=== PATIENT | male | born 1955 | race Caucasian/White ===

== ENCOUNTER 2018-02-21 09:24 | Emergency (ER) | payer OTHER ==
[2018-02-21] MEDS ORDERED: Norco 10/325 MG Tablet PO ONE (09:48)
--- NOTE | 2018-02-21 09:57 | ERPHSYRPT ---
- History of Present Illness Time Seen by Provider: 02/21/18 09:37 Source: patient Exam Limitations: clinical condition Patient Subjective Stated Complaint: pt states a couple weeks ago he believes he pulled his right calf muscle, states the pain has gradually increased and in the last couple days and now has pain that radiates up to the right hip joint as well. pt reports he cannot sleep due to the pain. pt reports he cannot find a position of comfort. Triage Nursing Assessment: pt is aox3, pupils perrl, afebrile, resps easy and non labored, radial pulses strong and equal, pt skin is pink warm dry. no edema noted to lower extremities, no redness is noted. pt has significant varicose veins to the bilat lower extremities. pedal pulses are strong and equal. 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 DENIES COUGH, DYSPNEA OR CHEST PAIN. Method of Injury: other (DENIES INJURY) Quality: constant, throbbing Severity of Pain-Max: moderate Severity of Pain-Current: moderate Lower Extremities Pain: hip: right, leg: right Modifying Factors: Improves With: movement Associated Symptoms: unable to bear weight (PAIN UPON WEIGHT BEARING) Allergies/Adverse Reactions: oxytetracycline [From Terramycin] Allergy (Verified 02/21/18 09:45) oxytetracycline HCl [From Terramycin] Allergy (Verified 02/21/18 09:45) Home Medications: Lisinopril 25 mg PO DAILY 05/16/15 [History] Metoprolol Succinate 25 mg Xl* [Toprol-Xl 25MG Tablets] 100 mg PO DAILY 05/16 [History] Diclofenac Sodium 50 mg [Voltaren 50 mg] 50 mg PO TID 02/21/18 [History] Doxylamine Succinate [Unisom Sleep Aid] 25 mg PO QHS 02/21/18 [History] Loratadine 10 mg [Claritin 10 mg] 10 mg PO DAILY 02/21/18 [History] Hx Tetanus, Diphtheria Vaccination/Date Given: Yes Hx Influenza Vaccination/Date Given: Yes Hx Pneumococcal Vaccination/Date Given: No Immunizations Up to Date: Yes - Review of Systems Constitutional: No Symptoms Respiratory: No Symptoms Cardiac: No Symptoms Musculoskeletal: Joint Pain, Other (LEG PAIN AND SWELLING) Neurological: No Symptoms Psychological: No Symptoms Endocrine: No Symptoms - Past Medical History Pertinent Past Medical History: Yes Cardiac History: Hypertension Musculoskeletal History: Arthritis Other Medical History: gout - Past Surgical History Past Surgical History: Yes Other Surgical History: nasal surgery, tonsils, - Social History Smoking Status: Former smoker Exposure to second hand smoke: No Drug Use: none Patient Lives Alone: No - Nursing Vital Signs Nursing Vital Signs: Initial Vital Signs Temperature 97.9 F 02/21/18 09:29 Pulse Rate 96 H 02/21/18 09:29 Respiratory Rate 20 02/21/18 09:29 Blood Pressure 131/83 02/21/18 09:29 O2 Sat by Pulse Oximetry 98 02/21/18 09:29 Pain Scale Pain Intensity 10 - Physical Exam General Appearance: no apparent distress Neck Exam: normal inspection Cardiovascular/Respiratory Exam: chest non-tender Gastrointestinal/Abdominal Exam: non-tender, soft Back Exam: normal inspection, normal range of motion Hips Exam: right: normal inspection, limited range of motion (INTERNAL/EXTERNAL ROTATION WITH PAIN, NO GREATER TROCHANTER TENDERNESS, SWELLING OR DEFORMITY ) Legs Exam: right leg: pain, soft tissue tenderness, swelling (OF RIGHT CALF AND CABRERA, MARKED VARICOSE VEINS, CIRCUMFERENCE OF MID RIGHT LEG 46CM COMPARED TO LEFT MID LEG CIRCUMFERENCE OF 43CM, BILAT PEDIS PULSES 2+) Neuro/Tendon Exam: normal sensation, normal motor functions Mental Status Exam: alert, oriented x 3, cooperative SpO2: 98 Oxygen Delivery: Room Air - Radiology Exams Right Hip X-ray Interpretation: Discussed w/ radiologist, No Fracture Pelvis X-ray Interpretation: Discussed w/ radiologist, No Fracture - Radiology Ultrasound Exam Right Venous Lower Extremity Ultrasound: discussed w/radiologist (NO DVT, PHLEBITIS OF VARICOSE VEINS, THERE IS A SMALL POPLITEAL BAKERS CYST) Ordered Tests: Active Orders 24 hr Category Date Time Status HIP UNI (2V) INCL PEL IF DONE Stat Exams 02/21/18 09:49 Completed VENOUS UNILAT/LIMITED EXTREMIT [US] Stat Exams 02/21/18 10:47 Taken Medication Summary Discontinued Medications Generic Name Dose Route Start Last Admin Trade Name Freq PRN Reason Stop Dose Admin Hydrocodone Bitart/Acetaminophen 1 tab 02/21/18 09:48 02/21/18 10:25 [place] 10/325 Mg Tablet PO 02/21/18 09:49 1 tab STAT ONE Administration Hydrocodone Bitart/Acetaminophen Confirm 02/21/18 10:00 [place] 10/325 Mg Tablet Administered 02/21/18 10:01 Dose 1 tab .ROUTE .STK-MED ONE - Progress Progress: pain not gone completely Progress Note: 02/21/18 09:57 ADMINISTERED [place] 10/325 ORALLY Counseled pt/family regarding: diagnosis, need for follow-up, rad results - Departure Time of Disposition: 11:00 Departure Disposition: Home Clinical Impression: BAKERS CYST OF RIGHT KNEE, RIGHT LEG VARICOSE VEINS, RIGHT HIP PAIN Condition: Stable Critical Care Time: No Referrals: CARLOS STACY [Primary Care Provider] - Additional Instructions: AMBULATE USING CRUTCHES AT HOME WITH NONWEIGHT BEARING RIGHT LEG FOR 1 WEEK. ULTRAM 50MG EVERY 6 HOURS NEEDED FOR PAIN. CONSULT YOUR PRIMARY CARE PROVIDER FOR EVALUATION OF VARICOSE VEINS AND BAKERS CYST BEHIND RIGHT KNEE. Prescriptions: Tramadol HCl 50 mg [Ultram 50 mg] 50 mg PO Q6H PRN PRN #20 tablet PRN Reason: Pain
[2018-02-21] MEDS ORDERED: Norco 10/325 MG Tablet ONE (10:00)
--- NOTE | 2018-02-21 10:17 | XRAY ---
Indication: Right hip pain 3 weeks. No known injury. Comparison: None AP pelvis and 2 views of the right hip demonstrates minimal bilateral hip degenerative joint space narrowing and a few left pelvic phleboliths. No other bony, articular, or soft tissue abnormalities.
[2018-02-21 11:07] VITALS: BP 131/79; PULSE 85; O2SAT 95
--- NOTE | 2018-02-21 11:08 | XRAY ---
Indication: Right calf pain. History varicosities. Two-dimensional sonogram and color Doppler imaging of the major venous vessels of the right leg was performed. Comparison: None No thrombus seen in the examined deep venous vessels of the right leg including greater saphenous vein. Veins demonstrate normal compressibility. Venous waveforms are normal with and without augmentation. At the level of the calf, there is superficial venous varicosity without abnormal intraluminal echogenicities. Incidental 5.4 x 2.2 x 0.8 cm Lux's cyst. Impression: Right leg negative for DVT. Incidental calf venous varicosity and a Lux's cyst.
== END 2018-02-21 11:06 | disposition home or self-care (01) ==
LOC: ED 09:24
DX: M71.21 Synovial cyst of popliteal space [Baker], right knee (principal); I83.91 Asymptomatic varicose veins of right lower extremity; M25.551 Pain in right hip; Z79.899 Other long term (current) drug therapy
CPT/HCPCS: 73502; 93971; 99284; A9270-GY

== ENCOUNTER 2019-06-03 18:09 | Inpatient (IN) | payer BC ==
[2019-06-03] MEDS ORDERED: Hydromorphone 1 mg/ml Ampule IV ONE (18:29)
[2019-06-03] MEDS ORDERED: Zofran 4 MG/2 ML VIAL IV ONE (18:29)
[2019-06-03] MEDS ORDERED: PROTONIX 40 MG IV IV ONE ×2 (18:29→18:36)
[2019-06-03] MEDS ORDERED: Sodium Chloride 0.9% 1000 ML 1,000 ML IV STA (18:29)
[2019-06-03] MEDS ORDERED: Zofran 4 MG/2 ML VIAL ONE (18:36)
[2019-06-03] MEDS ORDERED: Hydromorphone 1 mg/ml Ampule ONE (18:36)
[2019-06-03] MEDS ORDERED: Sodium Chloride 0.9% 1000 ML 1,000 ML ONE ×2 (18:36→20:15)
[2019-06-03] MEDS ORDERED: FLAGYL 500 MG IVPB 500 MG/100 ML BAG IV STA (18:48)
[2019-06-03] MEDS ORDERED: Merrem 1 GM 1 G in Sodium Chloride 100ML MINI-BAG PLUS 100 ML IV STA (18:48)
--- NOTE | 2019-06-03 18:48 | ERPHSYRPT ---
- History of Present Illness Historian: patient Exam Limitations: no limitations Patient Subjective Stated Complaint: Pt states that pain in his right quadrants woke him up last night and pain has continued through the day Triage Nursing Assessment: Pt brought to the ER by his , rates pain 6/10, right abdomen tender to palpatation, non radiating pain, last BM yesterday and appeared normal, decreased appetite today, weak, tired, denies N&V, no difficulties with urination, tachycardic with PVC's Timing/Duration: yesterday Activities at Onset: sleep Quality: stabbing Abdominal Pain Onset Location: RLQ Pain Radiation: no radiation Severity of Pain-Max: moderate Severity of Pain-Current: moderate Modifying Factors: Improves With: nothing Associated Symptoms: denies symptoms Previous symptoms: no prior history Hx Tetanus, Diphtheria Vaccination/Date Given: Yes Hx Influenza Vaccination/Date Given: Yes Hx Pneumococcal Vaccination/Date Given: No <JETT HERNANDES - Last Filed: 06/03/19 19:22> - History of Present Illness Historian: patient Exam Limitations: no limitations Timing/Duration: yesterday Activities at Onset: sleep Quality: stabbing Abdominal Pain Onset Location: RLQ Pain Radiation: no radiation <CLARA DAWN - Last Filed: 06/04/19 18:42> - History of Present Illness Time Seen by Provider: 06/03/19 18:25 Physician History: Patient is a 64-year-old male who was awakened from sleep with pain in the right lower quadrant last night pain is continued throughout the day it has hurts to move or take a deep breath he has had some chills and sweats previous abdominal surgeries. (JETT HERNANDES) Allergies/Adverse Reactions: oxytetracycline [From Terramycin] Allergy (Verified 06/03/19 18:25) oxytetracycline HCl [From Terramycin] Allergy (Verified 06/03/19 18:25) Home Medications: Doxylamine Succinate [Unisom Sleep Aid] 25 mg PO QHS 02/21/18 [History] Loratadine 10 mg [Claritin 10 mg] 10 mg PO DAILY 02/21/18 [History] Aspirin EC 81 mg [Ecotrin 81 mg] 81 mg PO DAILY 06/03/19 [History] Atorvastatin Calcium [Lipitor] 80 mg PO DAILY 06/03/19 [History] Carvedilol 3.125 mg [Coreg 3.125 MG] 3.125 mg PO BID 06/03/19 [History] Diclofenac Sodium 50 mg [Voltaren 50 mg] 50 mg PO BID 06/03/19 [History] Ticagrelor [Brilinta] 90 mg PO BID 06/03/19 [History] allopurinoL [Allopurinol] 100 mg PO HS 06/03/19 [History] hydroCHLOROthiazide [Hydrochlorothiazide] 12.5 mg PO DAILY 06/03/19 [History] - Review of Systems Constitutional: No Fever, No Chills Eyes: No Symptoms Ears, Nose, & Throat: No Symptoms Respiratory: No Cough, No Dyspnea Cardiac: No Chest Pain, No Edema, No Syncope Abdominal/Gastrointestinal: Abdominal Pain, No Nausea, No Vomiting, No Diarrhea Genitourinary Symptoms: No Dysuria Musculoskeletal: No Back Pain, No Neck Pain Skin: No Rash Neurological: No Dizziness, No Focal Weakness, No Sensory Changes Psychological: No Symptoms Endocrine: No Symptoms All Other Systems: Reviewed and Negative <JETT HERNANDES - Last Filed: 06/03/19 19:22> - Review of Systems Abdominal/Gastrointestinal: Abdominal Pain <CLARA DAWN - Last Filed: 06/04/19 18:42> - Past Medical History Pertinent Past Medical History: Yes Cardiac History: High Cholesterol, Hypertension, Myocardial Infarction ([place]) Musculoskeletal History: Arthritis Other Medical History: gout - Past Surgical History Past Surgical History: Yes Cardiac: Cardiac Catheterization, Cardiac Stent Other Surgical History: nasal surgery - Social History Smoking Status: Former smoker Exposure to second hand smoke: No Drug Use: none Patient Lives Alone: No <JETT HERNANDES - Last Filed: 06/03/19 19:22> - Physical Exam General Appearance: no apparent distress, alert Eye Exam: PERRL/EOMI, eyes nml inspection Ears, Nose, Throat Exam: normal ENT inspection, pharynx normal, moist mucous membranes Neck Exam: normal inspection, non-tender, supple, full range of motion Respiratory Exam: normal breath sounds, lungs clear, No respiratory distress Cardiovascular Exam: regular rate/rhythm, normal heart sounds Gastrointestinal/Abdomen Exam: soft, tenderness (There is guarding and rebound in the right lower quadrant), guarding, rebound, No mass Back Exam: normal inspection, normal range of motion, No CVA tenderness, No vertebral tenderness Extremity Exam: normal inspection, normal range of motion, pelvis stable Neurologic Exam: alert, oriented x 3, cooperative, normal mood/affect, nml cerebellar function, sensation nml, No motor deficits Skin Exam: normal color, warm, dry SpO2: 95 <JETT HERNANDES - Last Filed: 06/03/19 19:22> - Physical Exam SpO2 Interpretation: normal <CLARA DAWN - Last Filed: 06/04/19 18:42> - Nursing Vital Signs Nursing Vital Signs: Initial Vital Signs Temperature 98.2 F 06/03/19 18:14 Pulse Rate 122 H 06/03/19 18:14 Blood Pressure 145/96 06/03/19 18:14 O2 Sat by Pulse Oximetry 95 06/03/19 18:14 Pain Scale Pain Intensity 2 - Course Nursing assessment & vital signs reviewed: Yes EKG Interpreted by Me: RATE ([id number]), Sinus Tach, Left [place] Deviation, Left Bundle Branch Block, Non-specific ST Changes <JETT HERNANDES - Last Filed: 06/03/19 19:22> - Course Nursing assessment & vital signs reviewed: Yes - CT Exams Abdomen/Pelvis CT Interpretation: Tele-radiologist Report, No appendicitis, Other (bhavana concerns) <CLARA DAWN - Last Filed: 06/04/19 18:42> Ordered Tests: Active Orders 24 hr Category Date Time Status Bedrest with BRP/BSC ROUTINE Activity 06/03/19 21:29 Active Up With Assistance ROUTINE Activity 06/03/19 21:29 Active Admit as Inpatient ROUTINE Care 06/03/19 21:29 Active Call Admit Doctor for Orders ON ADMISSION Care 06/03/19 21:29 Active Disc Pad Grinding Machine Feeder STAT Care 06/03/19 18:35 Completed Code Status Order ROUTINE Care 06/03/19 21:29 Active EKG-ER Only STAT Care 06/03/19 18:34 Completed Fall Protocol Q1H Care 06/03/19 21:29 Active IV Care Q6H Care 06/03/19 21:29 Active IV Insertion STAT Care 06/03/19 18:29 Completed Oxygen-ED Only Nasal Cannula 2 lpm Care 06/03/19 18:46 Completed Antoine Reeves ROUTINE Care 06/03/19 21:29 Active Telemetry Q12H Care 06/03/19 21:29 Active Weight,Daily 0600 Care 06/03/19 21:29 Active ABDOMEN AND PELVIS W CONTRAST [CT] Stat Exams 06/03/19 18:30 Completed CHEST 1 VIEW (PORTABLE) Stat Exams 06/03/19 18:30 Completed AMYLASE Stat Lab 06/03/19 18:51 Completed BLOOD CULTURE Stat Lab 06/03/19 20:56 Received CBC W DIFF AM.LAB Lab 06/04/19 04:02 Completed CBC W DIFF Stat Lab 06/03/19 18:51 Completed CMP AM.LAB Lab 06/04/19 04:02 Completed CMP Stat Lab 06/03/19 18:51 Completed LIPASE Stat Lab 06/03/19 18:51 Completed Lactic Acid Stat Lab 06/03/19 18:38 Completed Lactic Acid Stat Lab 06/03/19 20:43 Completed Manual Differential NC Stat Lab 06/03/19 18:51 Completed PROTIME WITH INR Stat Lab 06/03/19 18:51 Completed TROPONIN Q3H Lab 06/03/19 18:51 Completed TROPONIN Q3H Lab 06/03/19 21:56 Completed TROPONIN Q3H Lab 06/04/19 00:30 Completed TROPONIN Q3H Lab 06/04/19 04:02 Completed TROPONIN Q3H Lab 06/04/19 06:45 Completed UA W/RFX UR CULTURE Stat Lab 06/04/19 12:53 Completed Pulse Oximetry CONTINUOUS RT 06/03/19 21:29 Active Medication Summary Generic Name Dose Route Start Last Admin Trade Name Freq PRN Reason Stop Dose Admin Allopurinol 100 mg 06/03/19 22:00 06/03/19 23:09 Zyloprim 100 Mg PO 07/03/19 21:59 100 mg QHS MESERET Administration Aspirin 81 mg 06/04/19 10:00 06/04/19 09:23 Ecotrin 81 Mg PO 07/04/19 09:59 81 mg DAILY MESERET Administration Carvedilol 3.125 mg 06/03/19 22:00 06/04/19 09:21 Coreg 3.125 Mg PO 07/03/19 21:59 3.125 mg BID MESERET Administration Diphenhydramine HCl 25 mg 06/03/19 22:50 Benadryl 25 Mg Capsule PO 07/03/19 22:49 HS PRN PRN INSOMNIA Hydrochlorothiazide 12.5 mg 06/04/19 10:00 06/04/19 09:22 Hydrodiuril 25 Mg PO 07/04/19 09:59 12.5 mg DAILY MESERET Administration Hydromorphone HCl 0.5 mg 06/03/19 21:29 06/04/19 15:03 Dilaudid 2 Mg Injection IV 06/08/19 21:28 0.5 mg Q4H PRN PRN Administration PAIN Potassium Chloride/Dextrose/Sod Cl 1,000 mls @ 100 mls/hr 06/03/19 23:00 09:03 D5w/0.45ns W/ 20meq Kcl 1000 Ml IV 07/03/19 22:59 100 mls/hr .Q10H MESERET Administration Meropenem 1 g/ Sodium Chloride 100 mls @ 200 mls/hr 06/04/19 14:00 06/04/19 14:30 IV 07/04/19 13:59 200 mls/hr Q8HT MESERET Administration Insulin Human Regular 0 unit 06/04/19 10:00 06/04/19 12:19 Humulin R SQ 07/04/19 09:59 3 unit UD PRN Administration Loratadine 10 mg 06/04/19 10:00 06/04/19 09:21 Claritin 10 Mg PO 07/04/19 09:59 10 mg DAILY MESERET Administration Morphine Sulfate 4 mg 06/03/19 22:54 Morphine Sulfate 4 Mg Inj IV 06/08/19 22:53 Q2H PRN PRN PAIN Ondansetron HCl 4 mg 06/03/19 21:29 Zofran 4 Mg/2 Ml Vial IV 07/03/19 21:28 Q6H PRN PRN NAUSEA/VOMITING Simvastatin 40 mg 06/04/19 10:00 06/04/19 09:22 Zocor 20mg PO 07/04/19 09:59 40 mg DAILY MESERET Administration Discontinued Medications Generic Name Dose Route Start Last Admin Trade Name Freq PRN Reason Stop Dose Admin Hydromorphone HCl 1 mg 06/03/19 18:29 06/03/19 18:40 Hydromorphone 1 Mg/Ml Ampule IV 06/03/19 18:30 1 mg STAT ONE Administration Hydromorphone HCl Confirm 06/03/19 18:36 Hydromorphone 1 Mg/Ml Ampule Administered 06/03/19 18:37 Dose 1 mg .ROUTE .STK-MED ONE Sodium Chloride 1,000 mls @ 999 mls/hr 06/03/19 18:29 06/03/19 19:36 Sodium Chloride 0.9% 1000 Ml IV 06/03/19 19:29 Infused .Q1H1M STA Infusion Sodium Chloride Confirm 06/03/19 18:36 Sodium Chloride 0.9% 1000 Ml Administered 06/03/19 18:37 Dose 1,000 mls @ ud .ROUTE .STK-MED ONE Meropenem 1 g/ Sodium Chloride 100 mls @ 200 mls/hr 06/03/19 18:48 06/03/19 19:33 IV 06/03/19 19:17 Infused STAT STA Infusion Metronidazole 500 mg in 100 mls @ 200 mls/hr 06/03/19 18:48 06/03/19 20:23 Flagyl 500 Mg Ivpb IV 06/03/19 19:17 Infused STAT STA Infusion Sodium Chloride Confirm 06/03/19 18:54 Sodium Chloride 0.9% 100 Ml Ivpb Administered 06/03/19 18:55 Dose 100 mls @ ud IV .STK-MED ONE Metronidazole Confirm 06/03/19 19:31 Flagyl 500 Mg Ivpb Administered 06/03/19 19:32 Dose 500 mg in 100 mls @ ud IV .STK-MED ONE Potassium Chloride 20 meq in 100 mls @ 50 mls/hr 06/03/19 20:15 06/03/19 23: 10 Potassium Chloride 20 Meq In Water 100ml IV 06/04/19 00:14 50 mls/hr Q2H MESERET Administration Sodium Chloride 1,000 mls @ 100 mls/hr 06/03/19 20:15 06/03/19 20:19 Sodium Chloride 0.9% 1000 Ml IV 07/03/19 20:14 100 mls/hr .Q10H MESERET Administration Meropenem 1 g/ Sodium Chloride 100 mls @ 200 mls/hr 06/04/19 22:00 IV 07/04/19 21:59 Q24H MESERET Sodium Chloride Confirm 02/15/20 20:15 Sodium Chloride 0.9% 1000 Ml Administered 06/03/19 20:16 Dose 1,000 mls @ ud .ROUTE .STK-MED ONE Insulin Human Regular 0 unit 06/03/19 21:29 Novolin R SQ 07/03/19 21:28 UD PRN HYPERGLYCEMIA Meropenem Confirm 06/03/19 18:54 Merrem 1 Gm Administered 06/03/19 18:55 Dose 1 g IV .STK-MED ONE Ondansetron HCl 4 mg 06/03/19 18:29 06/03/19 18:40 Zofran 4 Mg/2 Ml Vial IV 06/03/19 18:30 4 mg STAT ONE Administration Ondansetron HCl Confirm 06/03/19 18:36 Zofran 4 Mg/2 Ml Vial Administered 06/03/19 18:37 Dose 4 mg .ROUTE .STK-MED ONE Pantoprazole Sodium 40 mg 06/03/19 18:29 06/03/19 18:40 Protonix 40 Mg Iv IV 06/03/19 18:30 40 mg STAT ONE Administration Pantoprazole Sodium Confirm 06/03/19 18:36 Protonix 40 Mg Iv Administered 06/03/19 18:37 Dose 40 mg IV .STK-MED ONE Lab/Rad Data: Laboratory Result Diagrams 06/03/19 18:51 06/03/19 18:51 Laboratory Results 06/03/19 06/03/19 06/03/19 Range/Units 20:43 18:51 18:51 WBC (4.0-10.5) K/mm3 RBC (4.1-5.6) M/mm3 Hgb (12.5-18.0) gm/dl Hct (42-50) % MCV (78-100) fl MCH (26-32) pg MCHC (32-36) g/dl RDW (11.5-14.0) % Plt Count (150-450) K/mm3 MPV (7.5-11.0) fl Segmented Neutrophils (36.-66.) % Lymphocytes (Manual) (24-44) % Monocytes (Manual) (0.0-12.0) % Eosinophils (Manual) (0.00-3.0) % Platelet Estimate (NORMAL) RBC Morphology PT 14.2 H (8.83-12.87) SECONDS INR 1.25 (0.8-3.0) Sodium (137-145) mmol/L Potassium (3.5-5.1) mmol/L Chloride (98-107) mmol/L Carbon Dioxide (22-30) mmol/L Anion Gap (5-15) MEQ/L BUN (9-20) mg/dL Creatinine (0.66-1.25) mg/dL Estimated GFR ML/MIN Glucose (74-106) mg/dL Lactic Acid 1.4 (0.4-2.0) Calcium (8.4-10.2) mg/dL Total Bilirubin (0.2-1.3) mg/dL AST (17-59) U/L ALT (0-50) U/L Alkaline Phosphatase (38-126) U/L Troponin I 0.018 (0.000-0.034) ng/mL Serum Total Protein (6.3-8.2) g/dL Albumin (3.5-5.0) g/dL Amylase (30-110) U/L Lipase (23-300) U/L 06/03/19 06/03/19 06/03/19 Range/Units 18:51 18:51 18:38 WBC 21.7 H (4.0-10.5) K/mm3 RBC 5.27 (4.1-5.6) M/mm3 Hgb 15.3 (12.5-18.0) gm/dl Hct 45.6 (42-50) % MCV 86.5 (78-100) fl MCH 29.0 (26-32) pg MCHC 33.6 (32-36) g/dl RDW 14.7 H (11.5-14.0) % Plt Count 229 (150-450) K/mm3 MPV 11.0 (7.5-11.0) fl Segmented Neutrophils 72 H (36.-66.) % Lymphocytes (Manual) 17 L (24-44) % Monocytes (Manual) 10 (0.0-12.0) % Eosinophils (Manual) 1 (0.00-3.0) % Platelet Estimate NORMAL (NORMAL) RBC Morphology NORMAL PT (8.83-12.87) SECONDS INR (0.8-3.0) Sodium 140 (137-145) mmol/L Potassium 3.3 L (3.5-5.1) mmol/L Chloride 104 (98-107) mmol/L Carbon Dioxide 24 (22-30) mmol/L Anion Gap 15.1 H (5-15) MEQ/L BUN 17 (9-20) mg/dL Creatinine 0.95 (0.66-1.25) mg/dL Estimated GFR > 60.0 ML/MIN Glucose 174 H (74-106) mg/dL Lactic Acid 2.0 (0.4-2.0) Calcium 8.9 (8.4-10.2) mg/dL Total Bilirubin 0.90 (0.2-1.3) mg/dL AST 32 (17-59) U/L ALT 41 (0-50) U/L Alkaline Phosphatase 49 (38-126) U/L Troponin I (0.000-0.034) ng/mL Serum Total Protein 8.0 (6.3-8.2) g/dL Albumin 4.3 (3.5-5.0) g/dL Amylase 70 (30-110) U/L Lipase 53 (23-300) U/L <JETT HERNANDES - Last Filed: 06/03/19 19:22> - Progress Progress: improved, re-examined Will see patient in: hospital (full admit), other (Amandeep Cruz) Counseled pt/family regarding: lab results, diagnosis, need for follow-up, rad results <CLARA DAWN - Last Filed: 06/04/19 18:42> - Progress Progress Note: 06/04/19 18:33 pt was taken at change of shift from Dr. Hernandes after discussion of pending studies and was found to have signs of bhavana and admitted to Dr. Cruz for definitive Tx (CLARA DAWN) <JETT HERNANDES - Last Filed: 06/03/19 19:22> - Departure Departure Disposition: In-patient Admission Critical Care Time: No <CLARA DAWN - Last Filed: 06/04/19 18:42> - Departure Clinical Impression: Cholecystitis Condition: Good
--- NOTE | 2019-06-03 18:48 | ERPHSYRPT ---
- History of Present Illness Time Seen by Provider: 06/03/19 18:43 Historian: patient, family Exam Limitations: no limitations Patient Subjective Stated Complaint: Pt states that pain in his right quadrants woke him up last night and pain has continued through the day Triage Nursing Assessment: Pt brought to the ER by his , rates pain 6/10, right abdomen tender to palpatation, non radiating pain, last BM yesterday and appeared normal, decreased appetite today, weak, tired, denies N&V, no difficulties with urination, tachycardic with PVC's Physician History: pt is 64 yr old male with onset RLQ pain early this am with tenderness right side abd - no trauma no vomiting but decreased apetite. denies CP or sobreath has hx stent 2 yrs ago recieved pt from dr. Hernandes at change of shift , after discussion of pending tests and introductions Timing/Duration: today Activities at Onset: sleep Quality: sharpness Abdominal Pain Onset Location: RLQ Pain Radiation: no radiation Severity of Pain-Max: moderate Severity of Pain-Current: moderate Associated Symptoms: fever/chills, loss of appetite, nausea, weakness Previous symptoms: no prior history Allergies/Adverse Reactions: oxytetracycline [From Terramycin] Allergy (Verified 06/03/19 18:25) oxytetracycline HCl [From Terramycin] Allergy (Verified 06/03/19 18:25) Home Medications: Doxylamine Succinate [Unisom Sleep Aid] 25 mg PO QHS 02/21/18 [History] Loratadine 10 mg [Claritin 10 mg] 10 mg PO DAILY 02/21/18 [History] Aspirin EC 81 mg [Ecotrin 81 mg] 81 mg PO DAILY 06/03/19 [History] Carvedilol 3.125 mg [Coreg 3.125 MG] 3.125 mg PO BID 06/03/19 [History] Diclofenac Sodium 50 mg [Voltaren 50 mg] 50 mg PO BID 06/03/19 [History] Ticagrelor [Brilinta] 90 mg PO DAILY 06/03/19 [History] allopurinoL [Allopurinol] 100 mg PO DAILY 06/03/19 [History] hydroCHLOROthiazide [Hydrochlorothiazide] 12.5 mg PO DAILY 06/03/19 [History] Hx Tetanus, Diphtheria Vaccination/Date Given: Yes Hx Influenza Vaccination/Date Given: Yes Hx Pneumococcal Vaccination/Date Given: No - Review of Systems Constitutional: Fever, Chills, Malaise, Weakness Eyes: No Symptoms Ears, Nose, & Throat: No Symptoms Respiratory: No Cough, No Dyspnea Cardiac: No Chest Pain, No Edema, No Syncope Abdominal/Gastrointestinal: Abdominal Pain, Nausea, Appetite Changes, No Vomiting, No Diarrhea Genitourinary Symptoms: No Dysuria Musculoskeletal: No Back Pain, No Neck Pain Skin: No Rash Neurological: No Dizziness, No Focal Weakness, No Sensory Changes Psychological: No Symptoms Endocrine: No Symptoms All Other Systems: Reviewed and Negative - Past Medical History Pertinent Past Medical History: Yes Cardiac History: High Cholesterol, Hypertension, Myocardial Infarction (MT) Musculoskeletal History: Arthritis Other Medical History: gout - Past Surgical History Past Surgical History: Yes Cardiac: Cardiac Catheterization, Cardiac Stent Other Surgical History: nasal surgery - Social History Smoking Status: Former smoker Exposure to second hand smoke: No Drug Use: none Patient Lives Alone: No - Nursing Vital Signs Nursing Vital Signs: Initial Vital Signs Temperature 98.2 F 06/03/19 18:14 Pulse Rate 122 H 06/03/19 18:14 Blood Pressure 145/96 06/03/19 18:14 O2 Sat by Pulse Oximetry 95 06/03/19 18:14 Pain Scale Pain Intensity 2 - Physical Exam General Appearance: no apparent distress, alert Eye Exam: PERRL/EOMI, eyes nml inspection Ears, Nose, Throat Exam: normal ENT inspection, pharynx normal, moist mucous membranes Neck Exam: normal inspection, non-tender, supple, full range of motion Respiratory Exam: normal breath sounds, lungs clear, No respiratory distress Cardiovascular Exam: regular rate/rhythm, normal heart sounds Gastrointestinal/Abdomen Exam: soft, tenderness, guarding, rebound, No mass Rectal Exam: deferred Back Exam: normal inspection, normal range of motion, No CVA tenderness, No vertebral tenderness Extremity Exam: normal inspection, normal range of motion, pelvis stable Neurologic Exam: alert, oriented x 3, cooperative, normal mood/affect, nml cerebellar function, sensation nml, No motor deficits Skin Exam: normal color, warm, dry SpO2: 95 - Course Nursing assessment & vital signs reviewed: Yes EKG Interpreted by Me: Sinus Tach, Left Borger Deviation, Left Bundle Branch Block , Non-specific ST Changes - CT Exams Abdomen/Pelvis CT Interpretation: Tele-radiologist Report, Normal Appendix, No appendicitis, Other (cholesytitis) Ordered Tests: Active Orders 24 hr Category Date Time Status 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 STAT Care 06/03/19 18:35 Active EKG-ER Only STAT Care 06/03/19 18:34 Active IV Insertion STAT Care 06/03/19 18:29 Active Oxygen-ED Only Nasal Cannula 2 lpm Care 06/03/19 18:46 Active ABDOMEN AND PELVIS W CONTRAST [CT] Stat Exams 06/03/19 18:30 Taken CHEST 1 VIEW (PORTABLE) Stat Exams 06/03/19 18:30 Taken AMYLASE Stat Lab 06/03/19 18:51 Completed BLOOD CULTURE Stat Lab 06/03/19 Ordered CBC W DIFF Stat Lab 06/03/19 18:51 Completed CMP Stat Lab 06/03/19 18:51 Completed LIPASE Stat Lab 06/03/19 18:51 Completed Lactic Acid Stat Lab 06/03/19 18:38 Completed Lactic Acid Stat Lab 06/03/19 20:43 Received Manual Differential NC Stat Lab 06/03/19 18:51 Completed PROTIME WITH INR Stat Lab 06/03/19 18:51 Completed TROPONIN Q3H Lab 06/03/19 18:51 Completed TROPONIN Q3H Lab 06/03/19 21:30 Ordered TROPONIN Q3H Lab 06/04/19 00:30 Ordered TROPONIN Q3H Lab 06/04/19 03:30 Ordered TROPONIN Q3H Lab 06/04/19 06:30 Ordered UA W/RFX UR CULTURE Stat Lab 06/03/19 18:29 Uncollected Medication Summary Generic Name Dose Route Start Last Admin Trade Name Freq PRN Reason Stop Dose Admin Potassium Chloride 20 meq in 100 mls @ 50 mls/hr 06/03/19 20:15 06/03/19 20: 32 Potassium Chloride 20 Meq In Water 100ml IV 06/04/19 00:14 50 mls/hr Q2H MESERET Administration Sodium Chloride 1,000 mls @ 100 mls/hr 06/03/19 20:15 06/03/19 20:19 Sodium Chloride 0.9% 1000 Ml IV 07/03/19 20:14 100 mls/hr .Q10H MESERET Administration Discontinued Medications Generic Name Dose Route Start Last Admin Trade Name Freq PRN Reason Stop Dose Admin Hydromorphone HCl 1 mg 06/03/19 18:29 06/03/19 18:40 Hydromorphone 1 Mg/Ml Ampule IV 06/03/19 18:30 1 mg STAT ONE Administration Hydromorphone HCl Confirm 06/03/19 18:36 Hydromorphone 1 Mg/Ml Ampule Administered 06/03/19 18:37 Dose 1 mg .ROUTE .STK-MED ONE Sodium Chloride 1,000 mls @ 999 mls/hr 06/03/19 18:29 06/03/19 19:36 Sodium Chloride 0.9% 1000 Ml IV 06/03/19 19:29 Infused .Q1H1M STA Infusion Sodium Chloride Confirm 06/03/19 18:36 Sodium Chloride 0.9% 1000 Ml Administered 06/03/19 18:37 Dose 1,000 mls @ ud .ROUTE .STK-MED ONE Meropenem 1 g/ Sodium Chloride 100 mls @ 200 mls/hr 06/03/19 18:48 06/03/19 19:33 IV 06/03/19 19:17 Infused STAT STA Infusion Metronidazole 500 mg in 100 mls @ 200 mls/hr 06/03/19 18:48 06/03/19 20:23 Flagyl 500 Mg Ivpb IV 06/03/19 19:17 Infused STAT STA Infusion Sodium Chloride Confirm 06/03/19 18:54 Sodium Chloride 0.9% 100 Ml Ivpb Administered 06/03/19 18:55 Dose 100 mls @ ud IV .STK-MED ONE Metronidazole Confirm 06/03/19 19:31 Flagyl 500 Mg Ivpb Administered 06/03/19 19:32 Dose 500 mg in 100 mls @ ud IV .STK-MED ONE Meropenem Confirm 06/03/19 18:54 Merrem 1 Gm Administered 06/03/19 18:55 Dose 1 g IV .STK-MED ONE Ondansetron HCl 4 mg 06/03/19 18:29 06/03/19 18:40 Zofran 4 Mg/2 Ml Vial IV 06/03/19 18:30 4 mg STAT ONE Administration Ondansetron HCl Confirm 06/03/19 18:36 Zofran 4 Mg/2 Ml Vial Administered 06/03/19 18:37 Dose 4 mg .ROUTE .STK-MED ONE Pantoprazole Sodium 40 mg 06/03/19 18:29 06/03/19 18:40 Protonix 40 Mg Iv IV 06/03/19 18:30 40 mg STAT ONE Administration Pantoprazole Sodium Confirm 06/03/19 18:36 Protonix 40 Mg Iv Administered 06/03/19 18:37 Dose 40 mg IV .STK-MED ONE Lab/Rad Data: Laboratory Result Diagrams 06/03/19 18:51 06/03/19 18:51 Laboratory Results 06/03/19 06/03/19 06/03/19 Range/Units 18:51 18:51 18:51 WBC (4.0-10.5) K/mm3 RBC (4.1-5.6) M/mm3 Hgb (12.5-18.0) gm/dl Hct (42-50) % MCV (78-100) fl MCH (26-32) pg MCHC (32-36) g/dl RDW (11.5-14.0) % Plt Count (150-450) K/mm3 MPV (7.5-11.0) fl PT 14.2 H (8.83-12.87) SECONDS INR 1.25 (0.8-3.0) Sodium 140 (137-145) mmol/L Potassium 3.3 L (3.5-5.1) mmol/L Chloride 104 (98-107) mmol/L Carbon Dioxide 24 (22-30) mmol/L Anion Gap 15.1 H (5-15) MEQ/L BUN 17 (9-20) mg/dL Creatinine 0.95 (0.66-1.25) mg/dL Estimated GFR > 60.0 ML/MIN Glucose 174 H (74-106) mg/dL Lactic Acid (0.4-2.0) Calcium 8.9 (8.4-10.2) mg/dL Total Bilirubin 0.90 (0.2-1.3) mg/dL AST 32 (17-59) U/L ALT 41 (0-50) U/L Alkaline Phosphatase 49 (38-126) U/L Troponin I 0.018 (0.000-0.034) ng/mL Serum Total Protein 8.0 (6.3-8.2) g/dL Albumin 4.3 (3.5-5.0) g/dL Amylase 70 (30-110) U/L Lipase 53 (23-300) U/L 06/03/19 06/03/19 Range/Units 18:51 18:38 WBC 21.7 H (4.0-10.5) K/mm3 RBC 5.27 (4.1-5.6) M/mm3 Hgb 15.3 (12.5-18.0) gm/dl Hct 45.6 (42-50) % MCV 86.5 (78-100) fl MCH 29.0 (26-32) pg MCHC 33.6 (32-36) g/dl RDW 14.7 H (11.5-14.0) % Plt Count 229 (150-450) K/mm3 MPV 11.0 (7.5-11.0) fl PT (8.83-12.87) SECONDS INR (0.8-3.0) Sodium (137-145) mmol/L Potassium (3.5-5.1) mmol/L Chloride (98-107) mmol/L Carbon Dioxide (22-30) mmol/L Anion Gap (5-15) MEQ/L BUN (9-20) mg/dL Creatinine (0.66-1.25) mg/dL Estimated GFR ML/MIN Glucose (74-106) mg/dL Lactic Acid 2.0 (0.4-2.0) Calcium (8.4-10.2) mg/dL Total Bilirubin (0.2-1.3) mg/dL AST (17-59) U/L ALT (0-50) U/L Alkaline Phosphatase (38-126) U/L Troponin I (0.000-0.034) ng/mL Serum Total Protein (6.3-8.2) g/dL Albumin (3.5-5.0) g/dL Amylase (30-110) U/L Lipase (23-300) U/L - Progress Progress: improved, re-examined Progress Note: 06/03/19 20:49 discussed with pt, family and Dr. smith including that pt is on brelinta and asa as blood thinners for CAD /stents; all agree best for pt to be admitted and Dr smith will call in orders for probable surgery; 06/03/19 20:[address].: Other (Dr. Panchito Smith) Will see patient in: hospital (full admit) Counseled pt/family regarding: lab results, diagnosis, need for follow-up, rad results - Departure Departure Disposition: In-patient Admission Clinical Impression: Cholecystitis Condition: Good Critical Care Time: No Referrals: CARLOS STACY [REFERRING *] -
[2019-06-03 18:53] LABS: Hematocrit 45.6 % (42-50); Hemoglobin 15.3 gm/dl (12.5-18.0); Mean Cell Volume 86.5 fl (78-100); Mean Corpuscular Hgb Concent. 33.6 g/dl (32-36); Platelet Count 229 K/mm3 (150-450); Red Blood Count 5.27 M/mm3 (4.1-5.6); Red Cell Distribution Width 14.7 % (11.5-14.0); White Blood Count 21.7 K/mm3 (4.0-10.5)
[2019-06-03] MEDS ORDERED: Sodium Chloride 0.9% 100 ML IVPB 100 ML IV ONE (18:54)
[2019-06-03] MEDS ORDERED: Merrem 1 GM IV ONE (18:54)
[2019-06-03 19:00] LABS: INR 1.25 (0.8-3.0); PROTIME 14.2 SECONDS (8.83-12.87)
[2019-06-03 19:05] LABS: ALBUMIN 4.3 g/dL (3.5-5.0); ALKALINE PHOSPHATASE 49 U/L (38-126); AMYLASE 70 U/L (30-110); ANION GAP 15.1 MEQ/L (5-15); BLOOD UREA NITROGEN 17 mg/dL (9-20); CHLORIDE 104 mmol/L (98-107); Calcium 8.9 mg/dL (8.4-10.2); Carbon Dioxide 24 mmol/L (22-30); Creatinine 1 0.95 mg/dL (0.66-1.25); Glucose 174 mg/dL (74-106); LIPASE 53 U/L (23-300); Potassium 3.3 mmol/L (3.5-5.1); SGOT/AST 32 U/L (17-59); SGPT/ALT 41 U/L (0-50); SODIUM 140 mmol/L (137-145)
[2019-06-03] MEDS ORDERED: FLAGYL 500 MG IVPB 500 MG/100 ML BAG IV ONE (19:31)
[2019-06-03] MEDS ORDERED: Sodium Chloride 0.9% 1000 ML 1,000 ML IV SCH (20:15)
[2019-06-03] MEDS: POTASSIUM CHLORIDE 20 mEq IN WATER 100ML 20 MEQ/100 ML BAG IV SCH ×2 (20:32→23:10)
[2019-06-03] MEDS ORDERED: NovoLIN R SQ PRN (21:29)
[2019-06-03] MEDS ORDERED: Zofran 4 MG/2 ML VIAL IV PRN (21:29)
[2019-06-03] MEDS ORDERED: BENADRYL 25 MG CAPSULE PO PRN (22:50)
[2019-06-03] MEDS: ZYLOPRIM 100 MG PO SCH (23:09)
[2019-06-03] MEDS: Coreg 3.125 MG PO SCH (23:09)
[2019-06-03] MEDS: D5W/0.45NS W/ 20mEq KCl 1000 ML 1,000 ML IV SCH (23:14)
[2019-06-03] MEDS: DILAUDID 2 MG INJECTION IV PRN (23:49)
[2019-06-04 01:03] LABS: Eosinophil 1 % (0.00-3.0); Lymphocytes 17 % (24-44); Monocyte 10 % (0.0-12.0); Neutrophils 72 % (36.-66.); Platelet Estimate NORMAL (NORMAL); Total Cells Counted 100
[2019-06-04 04:17] LABS: ALBUMIN 3.6 g/dL (3.5-5.0); ALKALINE PHOSPHATASE 46 U/L (38-126); ANION GAP 10.4 MEQ/L (5-15); BLOOD UREA NITROGEN 13 mg/dL (9-20); CHLORIDE 104 mmol/L (98-107); Calcium 8.1 mg/dL (8.4-10.2); Carbon Dioxide 26 mmol/L (22-30); Creatinine 1 0.87 mg/dL (0.66-1.25); Direct Bilirubin 0.1 mg/dL (0.0-0.4); Glucose 185 mg/dL (74-106); Potassium 3.8 mmol/L (3.5-5.1); SGOT/AST 36 U/L (17-59); SGPT/ALT 34 U/L (0-50); SODIUM 137 mmol/L (137-145); Total Protein 7.1 g/dL (6.3-8.2)
[2019-06-04 04:29] LABS: Hematocrit 42.3 % (42-50); Mean Cell Volume 88.7 fl (78-100); Mean Corpuscular Hemoglobin 29.4 pg (26-32); Mean Corpuscular Hgb Concent. 33.1 g/dl (32-36); Platelet Count 208 K/mm3 (150-450); Red Blood Count 4.77 M/mm3 (4.1-5.6); Red Cell Distribution Width 14.9 % (11.5-14.0); White Blood Count 21.2 K/mm3 (4.0-10.5)
[2019-06-04] MEDS: DILAUDID 2 MG INJECTION IV PRN ×4 (05:28→20:31)
[2019-06-04 05:55] LABS: BAND 6 % (0.0-2.0); Lymphocytes 9 % (24-44); Monocyte 7 % (0.0-12.0); Neutrophils 78 % (36.-66.); Platelet Estimate NORMAL (NORMAL); Total Cells Counted 100; Toxic Granulation 1+
--- NOTE | 2019-06-04 07:48 | XRAY ---
Indication: Right upper and right lower quadrant pain. Multiple contiguous axial images obtained through the abdomen and pelvis using 80 cc of Isovue-370 contrast only. Comparison: None Lung bases demonstrates bilateral dependent atelectasis. No infiltrate or effusion. Heart is not enlarged. Noncontrasted stomach and bowel loops appear nonobstructed. Normal appendix. Mild scattered colonic fecal debris throughout including rectum. Mild sigmoid diverticulosis. Gallbladder abnormally distended with 5 mm stone near the neck of the gallbladder. There is also borderline gallbladder wall thickening with minimal pericholecystic stranding concerning for cholecystitis. No biliary distention or abnormal free fluid/air. Spleen is enlarged measuring 14.8 cm in greatest axial dimension with a few calcified granulomas. Remaining liver, pancreas, spleen, adrenal glands, kidneys, ureters, and bladder appear unremarkable. Mild scattered aortoiliac calcifications. No AAA or pathological retroperitoneal lymphadenopathy. Osseous structures intact with mild/moderate degenerative changes throughout the thoracolumbar spine. Small fatty bilateral inguinal hernias, left greater than right. Impression: 1. Abnormally distended gallbladder with tiny gallstone, borderline wall thickening, and pericholecystic stranding. Rule out cholecystitis. 2. Incidental mild fecal stasis, sigmoid diverticulosis, splenomegaly, and bilateral fatty inguinal hernias. Comment: Preliminary interpretation was made by C. No critical discrepancy.
--- NOTE | 2019-06-04 07:51 | XRAY ---
Indication: Right abdomen pain. Comparison: None Portable apical lordotic chest demonstrates normal heart and lungs. Bony thorax intact with mild degenerative changes.
[2019-06-04] MEDS: D5W/0.45NS W/ 20mEq KCl 1000 ML 1,000 ML IV SCH ×2 (09:03→18:53)
[2019-06-04] MEDS: Coreg 3.125 MG PO SCH ×2 (09:21→21:57)
[2019-06-04] MEDS: CLARITIN 10 MG PO SCH (09:21)
[2019-06-04] MEDS: ZOCOR 20MG PO SCH (09:22)
[2019-06-04] MEDS: hydroDIURIL 25 MG PO SCH (09:22)
[2019-06-04] MEDS: ECOTRIN 81 MG PO SCH (09:23)
[2019-06-04] MEDS ORDERED: NON-FORMULARY ITEM (Atorvastatin Calcium [Lipitor] 80 MG) PO SCH (10:00)
[2019-06-04] MEDS ORDERED: NON-FORMULARY ITEM (Hydrochlorothiazide [Hydrochlorothiazide] 12.5 MG) PO SCH (10:00)
[2019-06-04] MEDS: HUMULIN R SQ PRN ×2 (12:19→22:16)
[2019-06-04 13:25] LABS: Appearance CLEAR (CLEAR); Bilirubin NEGATIVE (NEGATIVE); Blood NEGATIVE Ery/ul (0-5); Glucose NEGATIVE (NEGATIVE); Ketones NEGATIVE (NEGATIVE); Leukocyte Esterase NEGATIVE (NEGATIVE); Mucus SLIGHT /HPF (NEGATIVE); Nitrite NEGATIVE (NEGATIVE); Protein,Urine Dip NEGATIVE (Negative); Specific Gravity 1.028 (1.005-1.025); Urobilinogen 4 mg/dL (0-1)
[2019-06-04 13:28] LABS: RBC NONE SEEN /HPF (0-2); WBC NONE SEEN /HPF (0-5)
[2019-06-04] MEDS: Merrem 1 GM 1 G in Sodium Chloride 100ML MINI-BAG PLUS 100 ML IV SCH ×2 (14:30→21:56)
[2019-06-04] MEDS: ZYLOPRIM 100 MG PO SCH (21:57)
[2019-06-04] MEDS ORDERED: Merrem 1 GM 1 G in Sodium Chloride 100ML MINI-BAG PLUS 100 ML IV SCH (22:00)
[2019-06-04] MEDS: TYLENOL EXTRA STRENGTH 500 MG PO PRN (23:28)
[2019-06-05] MEDS: MORPHINE SULFATE 4 MG INJ IV PRN (03:45)
[2019-06-05] MEDS: D5W/0.45NS W/ 20mEq KCl 1000 ML 1,000 ML IV SCH (05:40)
[2019-06-05] MEDS: Merrem 1 GM 1 G in Sodium Chloride 100ML MINI-BAG PLUS 100 ML IV SCH ×3 (06:16→21:45)
[2019-06-05] MEDS ORDERED: MEFOXIN 2 GM PREMIX** 2 GM/50 ML ML IV SCH (07:00)
[2019-06-05] MEDS ORDERED: Lactated Ringers 1,000 ML IV ONE ×2 (07:07→07:21)
[2019-06-05] MEDS ORDERED: Sensorcaine 0.25% 10 ML ONE ×2 (07:07→08:57)
[2019-06-05] MEDS ORDERED: Pre-Attached Lta Kit TP ONE (08:25)
[2019-06-05] MEDS ORDERED: BREVIBLOC 100 MG/10 ML IV ONE (08:27)
[2019-06-05] MEDS ORDERED: SUBLIMAZE 250 MCG/5 ML ONE (08:27)
[2019-06-05] MEDS ORDERED: Zemuron 100 MG/10 ML ONE (08:27)
[2019-06-05] MEDS ORDERED: Quelicin Fliptop 200 MG/10 ML ONE (08:27)
[2019-06-05] MEDS ORDERED: Amidate 20 MG/10 ML IV ONE (08:27)
[2019-06-05] MEDS ORDERED: Versed 2 MG/2 ML Injection ONE (08:27)
[2019-06-05] MEDS ORDERED: PHENYLEPHRINE HCL ONE (08:47)
[2019-06-05] MEDS ORDERED: BRIDION 200MG/2ML IV ONE (09:09)
[2019-06-05] MEDS ORDERED: SUBLIMAZE 100 MCG/2 ML ONE (10:39)
[2019-06-05] MEDS ORDERED: Xopenex 1.25 MG/0.5 ML UD NEBULE IH ONE ×2 (11:01→11:16)
--- NOTE | 2019-06-05 11:38 | OP ---
SURGERY DATE/TIME: 06/05/2019 0834 PREOPERATIVE DIAGNOSIS: Acute cholecystitis. POSTOPERATIVE DIAGNOSES: Acute suppurative cholecystitis, gangrenous. PROCEDURE: Laparoscopic cholecystectomy. SURGEON: Panchito Cruz M.D. ANESTHESIA: MAC. SPECIMEN: Gallbladder. ESTIMATED BLOOD LOSS: 100. CONDITION: Patient condition stable. COMPLICATIONS: None. HISTORY: The patient is a 64 year-old male who presented to the emergency department with constant severe right upper quadrant abdominal pain. Work up revealed acute cholecystitis on imaging. He was admitted and started on IV antibiotic and Brilinta was held. He is on aspirin and Brilinta for over a year stent. Risks of infection, bleeding, bile duct leak, common bile duct injury, injury to major structure, hernia, cardiopulmonary complications were discussed with the patient as well as percutaneous cholecystostomy and the patient elected to proceed with surgery. FINDINGS: Friable gangrenous gallbladder that drained pus. Critical view was easily obtained. AUDELIA drain was left. DESCRIPTION OF PROCEDURE: The patient was brought to the operating room. General anesthesia was induced. He was placed supine with arms out. Foot board was placed. Fascia wrap was on. SCD's were applied. He was routinely prepped and draped. Suboxone had been given preoperatively. Time out was performed. Veress needle was inserted in left upper quadrant. Opening pressure was 5. Pneumoperitoneum established. A 5 mm optical trocar was placed in left upper quadrant. Abdomen was surveyed. There was no apparent injury from Veress. There was omental adhesions up to the gallbladder. An 11 mm trocar placed supraumbilically. Two additional 5 mm trocars were placed in the right upper quadrant. Lidocaine was injected in the port sites. The omentum was then swept away from the gallbladder this is done bluntly. The gallbladder was markedly distended. It was palpable on physical exam preoperatively. It was retracted in routine fashion. Cystic duct and cystic artery were dissected out using a combination of L-hook and mostly blunt dissection. Surprisingly the dissection was easy as the edema and inflammation made everything else just fall away. The critical view was obtained. The cystic duct was taken with clips, three down and one up. Cystic artery was taken two down. Cystic duct was divided. Cystic artery was taken with cautery. The gallbladder is then taken off the liver fossa. During dissection the gallbladder did tear. There was purulence expressed. There was no spillage of stones. Pus was suctioned. Gallbladder placed in specimen bag. It was brought out the 11 mm port. This did require dilation. Skin incision did require extension. The gallbladder was partially morcellized inside the bag and sent to pathology. New gloves were put on. The port was replaced. Right upper quadrant was again surveyed. It was suctioned and irrigated. There was some mild ooze from the liver fossa. The clips appeared in good position. A piece of Fibrillar was placed in the gallbladder fossa and again suction and irrigated. There was good hemostasis. A 10 mm AUDELIA drain was placed in the gallbladder fossa this was brought up the lateral port site. The umbilical fascia was closed with 0 Vicryl suture passer. The right mid port was removed under visualization. The left upper quadrant port was used for desufflation and then removed. Umbilical incision was copiously irrigated and was closed with 4-0 Vicryl. Sterile dressings were applied. All counts were correct. On bringing the patient back to flat at the end of the procedure, his left foot had slipped off of the table. It is unclear if that was just momentarily while we were leveling the bed or if it had been off for a longer portion of the procedure. He is then extubated and taken to recovery in stable condition.
[2019-06-05 12:45] LABS: A-aADO2 153; ABG HEMOGLOBIN 14.2; ABG POTASSIUM 4.3 (3.5-5.1); ABG SITE RIGHT RADIAL; ALLEN TEST OK? YES; ARTERIAL BLD GAS O2 SATURATION 97.2 % (95-100); ARTERIAL BLOOD GAS BASE EXCESS 2.7 (-2.0-2.0); ARTERIAL BLOOD GAS FIO2 40 %; ARTERIAL BLOOD GAS PCO2 44 mmHg (35-45); ARTERIAL BLOOD GAS PO2 77 mmHg (75-100); ARTERIAL BLOOD GAS VENT MODE BiPAP; ARTERIAL BLOOD GAS pH 7.41 (7.35-7.45); CARBOXYHEMOGLOBIN 2.1 % THgb (0.0-6.9); HCO3- 27.9 (22-28); HGB O2 SAT 94.3 g/dF (94-100); Methhemoglobin 0.9 % (1.4-1.5); paO2 pAO1 0.33
[2019-06-05] MEDS: DILAUDID 2 MG INJECTION IV PRN ×2 (13:54→18:13)
[2019-06-05 14:46] LABS: Hematocrit 40.8 % (42-50); Hemoglobin 13.7 gm/dl (12.5-18.0); Mean Cell Volume 89.7 fl (78-100); Mean Corpuscular Hemoglobin 30.1 pg (26-32); Mean Corpuscular Hgb Concent. 33.6 g/dl (32-36); Mean Platelet Volume 10.3 fl (7.5-11.0); Platelet Count 179 K/mm3 (150-450); Red Blood Count 4.55 M/mm3 (4.1-5.6)
--- NOTE | 2019-06-05 14:55 | XRAY ---
Indication: Short of breath following cholecystectomy. Comparison: June 03, 2019. Portable apical lordotic chest markedly underinflated accentuating cardiopulmonary structures. New mild right base infiltrate/atelectasis/effusion. Remaining heart and lungs unremarkable.
[2019-06-05 15:33] LABS: ALBUMIN 3.5 g/dL (3.5-5.0); ALKALINE PHOSPHATASE 58 U/L (38-126); BLOOD UREA NITROGEN 13 mg/dL (9-20); CHLORIDE 102 mmol/L (98-107); Carbon Dioxide 25 mmol/L (22-30); Creatinine 1 0.94 mg/dL (0.66-1.25); Glucose 128 mg/dL (74-106); Potassium 3.8 mmol/L (3.5-5.1); SGOT/AST 50 U/L (17-59); SGPT/ALT 38 U/L (0-50); SODIUM 135 mmol/L (137-145)
[2019-06-05 15:44] LABS: BAND 1 % (0.0-2.0); Eosinophil 2 % (0.00-3.0); Lymphocytes 9 % (24-44); Monocyte 8 % (0.0-12.0); Neutrophils 80 % (36.-66.); Platelet Estimate NORMAL (NORMAL); Total Cells Counted 100; Toxic Granulation 1+
[2019-06-05] MEDS: Coreg 3.125 MG PO SCH (16:17)
[2019-06-05] MEDS: hydroDIURIL 25 MG PO SCH (16:17)
[2019-06-05] MEDS: CLARITIN 10 MG PO SCH (16:17)
[2019-06-05] MEDS: ECOTRIN 81 MG PO SCH (16:17)
[2019-06-05] MEDS: ZOCOR 20MG PO SCH (16:17)
--- NOTE | 2019-06-05 17:02 | PCM.HP ---
History of Present Illness - Chief Complaint Chief Complaint: CHOLECYSTITIS History of Present Illness: is a 64 year old male who has been admitted on the general surgery service since 06/03/2019, he was admitted with acute cholecystitis and had lap cholecystectomy today with Dr Ananth Cruz, postoperatively he required bipap and has been tachycardic. he has a known hx of cad with stent by Dr Frazier, he has no history of respiratory issues but is a former smoker, hasn't smoked for 20 years. he does have some shortness of breath at this time, he has a sinus tachycardia and fever. per notes appears his gallbladder was purulent/necrotic, postop chest xray shows right base infiltrate/atelectasis/effusion. - Review of Systems Constitutional: Fever Respiratory: Cough, Short Of Breath Cardiac: No Chest Pain Abdominal/Gastrointestinal: Abdominal Pain Genitourinary Symptoms: No Dysuria Skin: No Rash All Other Systems: Reviewed and Negative Medications & Allergies Home Medications: Home Medication List Doxylamine Succinate [Unisom Sleep Aid] 25 mg PO QHS 02/21/18 [History Confirmed 06/03/19] Loratadine 10 mg [Claritin 10 mg] 10 mg PO DAILY 02/21/18 [History Confirmed 06/03/19] Aspirin EC 81 mg [Ecotrin 81 mg] 81 mg PO DAILY 06/03/19 [History Confirmed 06/03/19] Atorvastatin Calcium [Lipitor] 80 mg PO DAILY 06/03/19 [History Confirmed ] Carvedilol 3.125 mg [Coreg 3.125 MG] 3.125 mg PO BID 06/03/19 [History Confirmed 06/03/19] Diclofenac Sodium 50 mg [Voltaren 50 mg] 50 mg PO BID 06/03/19 [History Confirmed 06/03/19] Ticagrelor [Brilinta] 90 mg PO BID 06/03/19 [History Confirmed 06/03/19] allopurinoL [Allopurinol] 100 mg PO HS 06/03/19 [History Confirmed 06/03/19] hydroCHLOROthiazide [Hydrochlorothiazide] 12.5 mg PO DAILY 06/03/19 [History Confirmed 06/03/19] Allergies/Adverse Reactions: Allergies Allergy/AdvReac Type Severity Reaction Status Date / Time oxytetracycline Allergy Verified 06/03/19 18:25 [From Terramycin] oxytetracycline HCl Allergy Verified 06/03/19 18:25 [From Terramycin] - Past Medical History Past Medical History: Yes Neurological History: No Pertinent History ENT History: No Pertinent History Cardiac History: High Cholesterol, Hypertension, Myocardial Infarction ([place]) Respiratory History: No Pertinent History Endocrine Medical History: No Pertinent History Musculoskelatal History: Arthritis GI Medical History: No Pertinent History History: No Pertinent History Pyscho-Social History: No Pertinent History Male Reproductive Disorders: No Pertinent History Comment: gout - Past Surgical History Past Surgical History: Yes Cardiac History: Cardiac Catheterization, Cardiac Stent GI Surgical History: Cholecystectomy Genitourinary Surgical Hx: No Pertinent History Musculskeletal Surgical Hx: No Pertinent History Male Surgical History: No Pertinent History Other Surgical History: nasal surgery - Social History Smoking Status: Former smoker Exposure to second hand smoke: No Alcohol: None Drug Use: none - Physical Exam Vital Signs: Vital Signs - 24 hr Temp Pulse Resp BP Pulse Ox 06/05/19 16:17 100.6 F 06/05/19 16:00 136 H 28 H 116/59 06/05/19 15:23 97.8 F 138 H 26 H 112/86 96 06/05/19 15:07 97.8 F 138 H 26 H 112/86 96 06/05/19 14:55 138 H 06/05/19 14:15 117 H 28 H 106/71 95 06/05/19 13:15 136 H 28 H 124/57 96 06/05/19 12:45 120 H 26 H 128/60 96 06/05/19 12:15 110 H 25 H 136/63 95 06/05/19 12:00 100.7 F 112 H 26 H 130/58 95 06/05/19 11:45 101.1 F 77 26 H 120/57 98 06/05/19 11:17 91 H 20 91 L 06/05/19 08:12 126/72 95 06/05/19 08:00 99.3 F 95 H 18 122/58 92 L 06/05/19 06:22 95 06/05/19 04:00 98.4 F 104 H 24 126/72 96 06/05/19 00:00 24 06/04/19 23:35 102.6 F 108 H 24 131/66 94 L 06/04/19 20:00 100.4 F 105 H 26 H 128/67 93 L 06/04/19 19:23 92 L General Appearance: no apparent distress, other (sleepy but arousable, answers questions appropriately, alert and oriented) Respiratory Exam: rhonchi Cardiovascular Exam: normal heart sounds, normal peripheral pulses, tachycardia Gastrointestinal/Abdomen Exam: soft, normal bowel sounds, other (AUDELIA with serous fluid, scant drainage from ruq site on dressing, no bowel sounds heard), No tenderness, No mass Skin Exam: normal color, warm, dry, No rash Results - Labs Lab/Micro Results: Accuchecks Date 06/05/19 Date 06/05/19 Date 06/05/19 Date 06/04/19 Time 16:23 Time 12:00 Time 07:50 Time 21:30 Accucheck Value: 118 Accucheck Value: 193 Lab Results-Last 24 Hours 06/05/19 06/05/19 06/05/19 Range/Units 07:59 12:43 14:40 WBC 18.0 H (4.0-10.5) K/mm3 RBC 4.55 (4.1-5.6) M/mm3 Hgb 13.7 (12.5-18.0) gm/dl Hct 40.8 L (42-50) % MCV 89.7 (78-100) fl MCH 30.1 (26-32) pg MCHC 33.6 (32-36) g/dl RDW 15.0 H (11.5-14.0) % Plt Count 179 (150-450) K/mm3 MPV 10.3 (7.5-11.0) fl Segmented Neutrophils 80 H (36.-66.) % Band Neutrophils 1 (0.0-2.0) % Lymphocytes (Manual) 9 L (24-44) % Monocytes (Manual) 8 (0.0-12.0) % Eosinophils (Manual) 2 (0.00-3.0) % Toxic Granulation 1+ Platelet Estimate NORMAL (NORMAL) RBC Morphology NORMAL Puncture Site RIGHT RADIAL pCO2 44 (35-45) mmHg pO2 77 (75-100) mmHg Base Excess 2.7 H (-2.0-2.0) O2 Saturation 94.3 (94-100) g/dF ABG pH 7.41 (7.35-7.45) ABG HCO3 27.9 (22-28) ABG O2 Sat (Measured) 97.2 (95-100) % Ayo Test YES A-a Gradient 153 a/A Ratio 0.33 Hemoglobin 14.2 Carboxyhemoglobin 2.1 (0.0-6.9) % THgb Methemoglobin 0.9 L (1.4-1.5) % Potassium 4.3 (3.5-5.1) Temperature 37.0 C POC O2 Flow Rate 40 % Vent Mode BiPAP Inspiratory BiPAP 14 Expiratory BiPAP 6 Sodium (137-145) mmol/L Chloride (98-107) mmol/L Carbon Dioxide (22-30) mmol/L Anion Gap (5-15) MEQ/L BUN (9-20) mg/dL Creatinine (0.66-1.25) mg/dL Estimated GFR ML/MIN Glucose (74-106) mg/dL Calcium (8.4-10.2) mg/dL Total Bilirubin (0.2-1.3) mg/dL AST (17-59) U/L ALT (0-50) U/L Alkaline Phosphatase (38-126) U/L Troponin I 0.021 (0.000-0.034) ng/mL Serum Total Protein (6.3-8.2) g/dL Albumin (3.5-5.0) g/dL 06/05/19 06/05/19 Range/Units 14:40 Unknown WBC (4.0-10.5) K/mm3 RBC (4.1-5.6) M/mm3 Hgb (12.5-18.0) gm/dl Hct (42-50) % MCV (78-100) fl MCH (26-32) pg MCHC (32-36) g/dl RDW (11.5-14.0) % Plt Count (150-450) K/mm3 MPV (7.5-11.0) fl Segmented Neutrophils (36.-66.) % Band Neutrophils (0.0-2.0) % Lymphocytes (Manual) (24-44) % Monocytes (Manual) (0.0-12.0) % Eosinophils (Manual) (0.00-3.0) % Toxic Granulation Platelet Estimate (NORMAL) RBC Morphology Puncture Site pCO2 (35-45) mmHg pO2 (75-100) mmHg Base Excess (-2.0-2.0) O2 Saturation (94-100) g/dF ABG pH (7.35-7.45) ABG HCO3 (22-28) ABG O2 Sat (Measured) (95-100) % Ayo Test A-a Gradient a/A Ratio Hemoglobin Carboxyhemoglobin (0.0-6.9) % THgb Methemoglobin (1.4-1.5) % Potassium 3.8 (3.5-5.1) Temperature C POC O2 Flow Rate % Vent Mode Inspiratory BiPAP Expiratory BiPAP Sodium 135 L (137-145) mmol/L Chloride 102 (98-107) mmol/L Carbon Dioxide 25 (22-30) mmol/L Anion Gap 12.0 (5-15) MEQ/L BUN 13 (9-20) mg/dL Creatinine 0.94 (0.66-1.25) mg/dL Estimated GFR > 60.0 ML/MIN Glucose 128 H (74-106) mg/dL Calcium 8.0 L (8.4-10.2) mg/dL Total Bilirubin 1.90 H (0.2-1.3) mg/dL AST 50 (17-59) U/L ALT 38 (0-50) U/L Alkaline Phosphatase 58 (38-126) U/L Troponin I 0.015 (0.000-0.034) ng/mL Serum Total Protein 7.0 (6.3-8.2) g/dL Albumin 3.5 (3.5-5.0) g/dL Accuchecks Date 06/05/19 Date 06/05/19 Date 06/05/19 Date 06/04/19 Time 16:23 Time 12:00 Time 07:50 Time 21:30 Accucheck Value: 118 Accucheck Value: 193 - Radiology Impressions Radiology Exams & Impressions: Radiology Procedures Category Date Time Status ABDOMEN AND PELVIS W CONTRAST [CT] Stat Exams 06/03/19 18:30 Completed CHEST 1 VIEW (PORTABLE) Stat Exams 06/03/19 18:30 Completed CHEST 1 VIEW (PORTABLE) Stat Exams 06/05/19 14:34 Completed - Other Procedures and Tests Respiratory Therapy 06/05/19 11:15 Respiratory Therapy Assessment DAILY 06/05/19 12:18 BiPap/CPAP STAT Assessment/Plan (1) Pneumonia Current Visit: Yes Status: Acute Assessment & Plan: currently on meropenem, will add vanc since he now has possible early pneumonia since admission/postoperatively. Code(s): J18.9 - PNEUMONIA, UNSPECIFIED ORGANISM (2) Acute cholecystitis Current Visit: Yes Status: Acute Assessment & Plan: s/p lap cholecystectomy, continue meropenem Code(s): K81.0 - ACUTE CHOLECYSTITIS (3) Sinus tachycardia Current Visit: Yes Status: Acute Assessment & Plan: will consult [facility] cardiology, sees Dr Osuna, hx of stent placement and chronic LBBB Code(s): R00.0 - TACHYCARDIA, UNSPECIFIED (4) Left bundle branch block (LBBB) Current Visit: Yes Status: Acute Code(s): I44.7 - LEFT BUNDLE-BRANCH BLOCK, UNSPECIFIED (5) Coronary artery disease Current Visit: Yes Status: Acute Code(s): I25.10 - ATHSCL HEART DISEASE OF [place] CORONARY ARTERY W/O ANG PCTRS
[2019-06-05] MEDS ORDERED: VANCOMYCIN 1 GRAM/200 ML BAG 1 GM/200 ML PIGGYBACK IV SCH (17:30)
[2019-06-05] MEDS ORDERED: LOPRESSOR 5 MG/5 ML INJECTION IV ONE (17:50)
[2019-06-05] MEDS: TYLENOL EXTRA STRENGTH 500 MG PO PRN (18:02)
[2019-06-05] MEDS ORDERED: Coreg 3.125 MG PO SCH (18:43)
[2019-06-05] MEDS: ZYLOPRIM 100 MG PO SCH (21:05)
[2019-06-06] MEDS: D5W/0.45NS W/ 20mEq KCl 1000 ML 1,000 ML IV SCH ×2 (00:07→14:26)
[2019-06-06] MEDS: LOPRESSOR 5 MG/5 ML INJECTION IV SCH ×2 (00:09→06:22)
[2019-06-06] MEDS: DILAUDID 2 MG INJECTION IV PRN ×4 (00:30→23:01)
[2019-06-06 03:21] LABS: Hematocrit 39.1 % (42-50); Hemoglobin 12.9 gm/dl (12.5-18.0); Mean Cell Volume 90.5 fl (78-100); Mean Corpuscular Hemoglobin 29.9 pg (26-32); Mean Platelet Volume 10.5 fl (7.5-11.0); Platelet Count 165 K/mm3 (150-450); Red Blood Count 4.32 M/mm3 (4.1-5.6); Red Cell Distribution Width 15.1 % (11.5-14.0); White Blood Count 20.7 K/mm3 (4.0-10.5)
[2019-06-06 03:34] LABS: ALBUMIN 3.2 g/dL (3.5-5.0); ALKALINE PHOSPHATASE 52 U/L (38-126); BLOOD UREA NITROGEN 21 mg/dL (9-20); CHLORIDE 100 mmol/L (98-107); Calcium 7.8 mg/dL (8.4-10.2); Carbon Dioxide 28 mmol/L (22-30); Creatinine 1 1.12 mg/dL (0.66-1.25); Glucose 170 mg/dL (74-106); SGOT/AST 44 U/L (17-59); SGPT/ALT 37 U/L (0-50); SODIUM 136 mmol/L (137-145); Total Protein 6.7 g/dL (6.3-8.2)
[2019-06-06 04:47] LABS: BAND 6 % (0.0-2.0); Eosinophil 1 % (0.00-3.0); Lymphocytes 13 % (24-44); Neutrophils 80 % (36.-66.); Total Cells Counted 100
[2019-06-06 04:48] LABS: ANISOCYTOSIS 1+; Platelet Estimate NORMAL (NORMAL); Poikilocytosis 1+; Toxic Granulation 1+
[2019-06-06] MEDS: Merrem 1 GM 1 G in Sodium Chloride 100ML MINI-BAG PLUS 100 ML IV SCH ×3 (05:27→21:38)
[2019-06-06] MEDS: HUMULIN R SQ PRN ×3 (08:15→23:37)
[2019-06-06] MEDS ORDERED: LOPRESSOR 5 MG/5 ML INJECTION IV PRN (08:30)
[2019-06-06] MEDS ORDERED: hydroDIURIL 25 MG PO SCH (10:00)
[2019-06-06] MEDS: Coreg 6.25 MG PO SCH ×2 (10:13→22:56)
[2019-06-06] MEDS: ZOCOR 20MG PO SCH (10:13)
[2019-06-06] MEDS: ECOTRIN 81 MG PO SCH (10:14)
[2019-06-06] MEDS: CLARITIN 10 MG PO SCH (10:14)
[2019-06-06] MEDS: NORCO 5/325 MG PO PRN (12:34)
[2019-06-06] MEDS: VANCOMYCIN 1 GRAM/200 ML BAG 1 GM/200 ML PIGGYBACK IV SCH ×2 (15:27→22:46)
--- NOTE | 2019-06-06 17:43 | PCM.NOTE ---
Date and Time: 06/06/191736 Subjective Assessment: Cardiology was consulted yesterday, thank you, and Dr. Westley Browne increased his coreg from 3.125mg po BID to 6.25po BID. Pt's HR has been in the 90s since midnight. Pt is passing some gas but thinks he may be constipated. His abd pain is 1-2/ 10 except when he coughs, which increases the pain. Pt has been taking his home meds. Objective Exam General Appearance: no apparent distress, alert Neurologic Exam: oriented x 3, cooperative Skin Exam: normal color, warm, dry, No rash Ears, Nose, Throat Exam: moist mucous membranes Neck Exam: normal inspection Respiratory Exam: normal breath sounds, lungs clear, No crackles/rales, No rhonchi, No wheezing Cardiovascular Exam: regular rate/rhythm, normal heart sounds, No murmur Gastrointestinal/Abdomen Exam: soft, tenderness (generalized), distention, No normal bowel sounds (hypoactive but present), No mass, No guarding, No rebound Extremity Exam: normal inspection, other (SCDs in place), No pedal edema OBJECTIVE DATA Vital Signs: Vital Signs - 24 hr Temp Pulse Resp BP Pulse Ox 06/06/19 17:01 94 H 06/06/19 12:00 98.3 F 96 H 18 126/72 94 L 06/06/19 08:00 97.9 F 93 H 22 112/62 94 L 06/06/19 06:56 93 L 06/06/19 06:00 92 L 06/06/19 04:00 98.6 F 93 H 26 H 107/60 93 L 06/06/19 00:14 98.1 F 98 H 26 H 92/60 92 L 06/06/19 00:00 123 H 23 06/05/19 20:00 98.7 F 123 H 23 113/66 93 L 06/05/19 18:09 100.9 F 111 H 28 H 105/69 Oxygen-Last 24 hours Oxygen Flowrate (L/min)-RT 3 Pain Assessment - Last Documented Pain Intensity 3 Pain Scale Used 0-10 Pain Scale Intake and Output: Intake & Output 06/04/19 06/05/19 06/06/19 06/07/19 11:59 11:59 11:59 11:59 Intake Total 1262 3341 2460 240 Output Total 550 1190 1430 300 Balance 712 2151 1030 -60 Weight 110.8 kg 110.8 kg 116.4 kg Lab Results: Accuchecks Accucheck Value: 199 Accucheck Value: 164 Accucheck Value: 188 Lab Results-Last 24 Hours 06/05/19 06/05/19 06/06/19 Range/Units 17:15 21:30 03:10 WBC 20.7 H (4.0-10.5) K/mm3 RBC 4.32 (4.1-5.6) M/mm3 Hgb 12.9 (12.5-18.0) gm/dl Hct 39.1 L (42-50) % MCV 90.5 (78-100) fl MCH 29.9 (26-32) pg MCHC 33.0 (32-36) g/dl RDW 15.1 H (11.5-14.0) % Plt Count 165 (150-450) K/mm3 MPV 10.5 (7.5-11.0) fl Segmented Neutrophils 80 H (36.-66.) % Band Neutrophils 6 H (0.0-2.0) % Lymphocytes (Manual) 13 L (24-44) % Eosinophils (Manual) 1 (0.00-3.0) % Toxic Granulation 1+ Platelet Estimate NORMAL (NORMAL) RBC Morphology ABNORMAL Poikilocytosis 1+ Anisocytosis 1+ Sodium (137-145) mmol/L Potassium (3.5-5.1) mmol/L Chloride (98-107) mmol/L Carbon Dioxide (22-30) mmol/L Anion Gap (5-15) MEQ/L BUN (9-20) mg/dL Creatinine (0.66-1.25) mg/dL Estimated GFR ML/MIN Glucose (74-106) mg/dL Calcium (8.4-10.2) mg/dL Total Bilirubin (0.2-1.3) mg/dL AST (17-59) U/L ALT (0-50) U/L Alkaline Phosphatase (38-126) U/L Troponin I 0.025 0.022 (0.000-0.034) ng/mL Serum Total Protein (6.3-8.2) g/dL Albumin (3.5-5.0) g/dL 06/06/19 06/06/19 Range/Units 03:10 03:10 WBC (4.0-10.5) K/mm3 RBC (4.1-5.6) M/mm3 Hgb (12.5-18.0) gm/dl Hct (42-50) % MCV (78-100) fl MCH (26-32) pg MCHC (32-36) g/dl RDW (11.5-14.0) % Plt Count (150-450) K/mm3 MPV (7.5-11.0) fl Segmented Neutrophils (36.-66.) % Band Neutrophils (0.0-2.0) % Lymphocytes (Manual) (24-44) % Eosinophils (Manual) (0.00-3.0) % Toxic Granulation Platelet Estimate (NORMAL) RBC Morphology Poikilocytosis Anisocytosis Sodium 136 L (137-145) mmol/L Potassium 4.0 (3.5-5.1) mmol/L Chloride 100 (98-107) mmol/L Carbon Dioxide 28 (22-30) mmol/L Anion Gap 12.0 (5-15) MEQ/L BUN 21 H (9-20) mg/dL Creatinine 1.12 (0.66-1.25) mg/dL Estimated GFR > 60.0 ML/MIN Glucose 170 H (74-106) mg/dL Calcium 7.8 L (8.4-10.2) mg/dL Total Bilirubin 1.50 H (0.2-1.3) mg/dL AST 44 (17-59) U/L ALT 37 (0-50) U/L Alkaline Phosphatase 52 (38-126) U/L Troponin I < 0.012 (0.000-0.034) ng/mL Serum Total Protein 6.7 (6.3-8.2) g/dL Albumin 3.2 L (3.5-5.0) g/dL Radiology Exams: Radiology Procedures Category Date Time Status CHEST 1 VIEW (PORTABLE) Stat Exams 06/05/19 14:34 Completed Multi-Disciplinary Progress Notes: Multi-Disciplinary Progress Notes 06/06/19 12:11 Pharmacy Note by [facility] adjusted Vancomycin dose to q8h interval to provide therapeutic level. Initialized on 06/06/19 12:11 - END OF NOTE Assessment/Plan (1) Status post cholecystectomy Current Visit: Yes Status: Acute Assessment & Plan: Pt on meropenem, day #3, for intra-abdominal coverage. Code(s): Z90.49 - ACQUIRED ABSENCE OF OTHER SPECIFIED PARTS OF DIGESTIVE TRACT (2) Pneumonia Current Visit: Yes Status: Acute Qualifiers: Pneumonia type: due to unspecified organism Assessment & Plan: Day #2 vancomycin Code(s): J18.9 - PNEUMONIA, UNSPECIFIED ORGANISM (3) Sinus tachycardia Current Visit: Yes Status: Resolved Assessment & Plan: HR has been staying at or under 100 bpm on increased dose carvedilol. Code(s): R00.0 - TACHYCARDIA, UNSPECIFIED (4) Constipation Current Visit: Yes Status: Acute Qualifiers: Constipation type: slow transit constipation Qualified Code(s): K59.01 - Slow transit constipation Assessment & Plan: will add colace 100 po BID prn Code(s): K59.00 - CONSTIPATION, UNSPECIFIED (5) Coronary artery disease Current Visit: Yes Status: Chronic Code(s): I25.10 - ATHSCL HEART DISEASE OF [place] CORONARY ARTERY W/O ANG PCTRS
[2019-06-06] MEDS: ZYLOPRIM 100 MG PO SCH (22:56)
[2019-06-07] MEDS: D5W/0.45NS W/ 20mEq KCl 1000 ML 1,000 ML IV SCH ×2 (04:30→18:14)
[2019-06-07] MEDS: Merrem 1 GM 1 G in Sodium Chloride 100ML MINI-BAG PLUS 100 ML IV SCH ×3 (05:17→20:47)
[2019-06-07] MEDS: VANCOMYCIN 1 GRAM/200 ML BAG 1 GM/200 ML PIGGYBACK IV SCH ×3 (05:46→22:18)
[2019-06-07] MEDS: NORCO 5/325 MG PO PRN ×2 (08:09→13:30)
[2019-06-07] MEDS: ECOTRIN 81 MG PO SCH (08:10)
[2019-06-07] MEDS: ZOCOR 20MG PO SCH (08:10)
[2019-06-07] MEDS: Coreg 6.25 MG PO SCH ×2 (08:10→20:47)
[2019-06-07] MEDS: CLARITIN 10 MG PO SCH (08:10)
--- NOTE | 2019-06-07 08:48 | PCM.NOTE ---
Date and Time: 06/07/19 0846 Subjective Assessment: patient is breathing comfortably, tolerating po, passing flatus. still has significant cough with sputum production but is feeling better, has been up ambulating Objective Exam General Appearance: no apparent distress, obese Neurologic Exam: alert, oriented x 3 Skin Exam: normal color, warm, dry Respiratory Exam: rhonchi Cardiovascular Exam: regular rate/rhythm, normal heart sounds Gastrointestinal/Abdomen Exam: soft, No tenderness, No mass Extremity Exam: normal inspection, normal range of motion OBJECTIVE DATA Vital Signs: Vital Signs - 24 hr Temp Pulse Resp BP Pulse Ox 06/07/19 07:22 95 06/07/19 04:28 97 H 06/07/19 04:15 99.6 F 100 H 22 109/67 95 06/07/19 01:00 97 H 06/06/19 23:45 100.6 F 99 H 24 126/86 94 L 06/06/19 21:00 105 H 06/06/19 20:11 99.2 F 97 H 26 H 103/79 94 L 06/06/19 19:18 93 L 06/06/19 17:01 94 H 06/06/19 16:00 98.2 F 96 H 22 121/75 94 L 06/06/19 12:00 98.3 F 96 H 18 126/72 94 L Pain Assessment - Last Documented Pain Intensity 8 Pain Scale Used 0-10 Pain Scale Intake and Output: Intake & Output 06/04/19 06/05/19 06/06/19 06/07/19 11:59 11:59 11:59 11:59 Intake Total 1262 3341 2460 3290 Output Total 550 1190 1430 2800 Balance 712 2151 1030 490 Weight 110.8 kg 110.8 kg 116.4 kg 116.4 kg Lab Results: Accuchecks Date 06/06/19 Time 20:00 Accucheck Value: 152 Accucheck Value: 135 Accucheck Value: 199 Radiology Exams: Radiology Procedures Category Date Time Status CHEST 1 VIEW (PORTABLE) Stat Exams 06/05/19 14:34 Completed Multi-Disciplinary Progress Notes: Multi-Disciplinary Progress Notes 06/06/19 12:11 Pharmacy Note by [facility] Pharm[facility] adjusted Vancomycin dose to q8h interval to provide therapeutic level. Initialized on 06/06/19 12:11 - END OF NOTE Assessment/Plan (1) Pneumonia Current Visit: Yes Status: Acute Qualifiers: Pneumonia type: due to unspecified organism Assessment & Plan: continue vanc and meropenem for nosocomial pathogens, repeat cbc today. Code(s): J18.9 - PNEUMONIA, UNSPECIFIED ORGANISM (2) Acute cholecystitis Current Visit: Yes Status: Acute Code(s): K81.0 - ACUTE CHOLECYSTITIS (3) Sinus tachycardia Current Visit: Yes Status: Resolved Assessment & Plan: HR well controlled at this time Code(s): R00.0 - TACHYCARDIA, UNSPECIFIED (4) Left bundle branch block (LBBB) Current Visit: Yes Status: Acute Code(s): I44.7 - LEFT BUNDLE-BRANCH BLOCK, UNSPECIFIED (5) Coronary artery disease Current Visit: Yes Status: Chronic Code(s): I25.10 - ATHSCL HEART DISEASE OF [place] CORONARY ARTERY W/O ANG PCTRS
[2019-06-07] MEDS: HUMULIN R SQ PRN (08:59)
[2019-06-07] MEDS: MORPHINE SULFATE 4 MG INJ IV PRN (09:00)
[2019-06-07 09:22] LABS: Hematocrit 36.6 % (42-50); Hemoglobin 11.7 gm/dl (12.5-18.0); Mean Cell Volume 89.9 fl (78-100); Mean Corpuscular Hemoglobin 28.7 pg (26-32); Platelet Count 194 K/mm3 (150-450); Red Blood Count 4.07 M/mm3 (4.1-5.6); Red Cell Distribution Width 14.7 % (11.5-14.0); White Blood Count 15.8 K/mm3 (4.0-10.5)
[2019-06-07 10:14] LABS: ALBUMIN 3.1 g/dL (3.5-5.0); ALKALINE PHOSPHATASE 60 U/L (38-126); ANION GAP 9.4 MEQ/L (5-15); BLOOD UREA NITROGEN 16 mg/dL (9-20); CHLORIDE 98 mmol/L (98-107); Calcium 7.9 mg/dL (8.4-10.2); Carbon Dioxide 29 mmol/L (22-30); Creatinine 1 0.73 mg/dL (0.66-1.25); Glucose 153 mg/dL (74-106); Potassium 3.7 mmol/L (3.5-5.1); SGOT/AST 37 U/L (17-59); SGPT/ALT 33 U/L (0-50); SODIUM 133 mmol/L (137-145); Total Protein 6.5 g/dL (6.3-8.2)
[2019-06-07 10:21] LABS: BAND 3 % (0.0-2.0); Eosinophil 1 % (0.00-3.0); Lymphocytes 9 % (24-44); Monocyte 4 % (0.0-12.0); Neutrophils 83 % (36.-66.); Total Cells Counted 100
[2019-06-07 10:22] LABS: ANISOCYTOSIS 1+; Platelet Estimate NORMAL (NORMAL); Polychromasia RARE; Toxic Granulation 2+
--- NOTE | 2019-06-07 19:38 | PCM.NOTE ---
Date and Time: 06/07/191934 Subjective Assessment: d/w RN over phone. did not physically see patient. Progress today. 3L NC. HR normal vitals ok. Stefanie CLD. pain not well controlled on norco. OBJECTIVE DATA Vital Signs: Vital Signs - 24 hr Temp Pulse Resp BP Pulse Ox 06/07/19 16:00 98.3 F 85 22 101/64 96 06/07/19 14:50 96 06/07/19 13:00 89 06/07/19 12:22 93 L 06/07/19 12:00 98.3 F 88 23 131/73 96 06/07/19 08:42 92 H 06/07/19 08:00 98.5 F 100 H 18 108/75 95 06/07/19 07:22 95 06/07/19 04:28 97 H 06/07/19 04:15 99.6 F 100 H 22 109/67 95 06/07/19 01:00 97 H 06/06/19 23:45 100.6 F 99 H 24 126/86 94 L 06/06/19 21:00 105 H 06/06/19 20:11 99.2 F 97 H 26 H 103/79 94 L Pain Assessment - Last Documented Pain Intensity 4 Pain Scale Used 0-10 Pain Scale Intake and Output: Intake & Output 06/05/19 06/06/19 06/07/19 06/08/19 06:59 06:59 06:59 06:59 Intake Total 3701 2100 3650 1737 Output Total 1150 1270 2600 1300 Balance 2551 830 1050 437 Weight 111.8 kg 116.4 kg 116.4 kg Lab Results: Accuchecks Date 06/07/19 Date 06/07/19 Date 06/07/19 Date 06/06/19 Time 16:30 Time 11:30 Time 07:30 Time 20:00 Accucheck Value: 121 Accucheck Value: 144 Accucheck Value: 152 Lab Results-Last 24 Hours 06/07/19 06/07/19 Range/Units 09:10 09:10 WBC 15.8 H (4.0-10.5) K/mm3 RBC 4.07 L (4.1-5.6) M/mm3 Hgb 11.7 L (12.5-18.0) gm/dl Hct 36.6 L (42-50) % MCV 89.9 (78-100) fl MCH 28.7 (26-32) pg MCHC 32.0 (32-36) g/dl RDW 14.7 H (11.5-14.0) % Plt Count 194 (150-450) K/mm3 MPV 11.0 (7.5-11.0) fl Segmented Neutrophils 83 H (36.-66.) % Band Neutrophils 3 H (0.0-2.0) % Lymphocytes (Manual) 9 L (24-44) % Monocytes (Manual) 4 (0.0-12.0) % Eosinophils (Manual) 1 (0.00-3.0) % Toxic Granulation 2+ Platelet Estimate NORMAL (NORMAL) RBC Morphology ABNORMAL Polychromasia RARE Anisocytosis 1+ Sodium 133 L (137-145) mmol/L Potassium 3.7 (3.5-5.1) mmol/L Chloride 98 (98-107) mmol/L Carbon Dioxide 29 (22-30) mmol/L Anion Gap 9.4 (5-15) MEQ/L BUN 16 (9-20) mg/dL Creatinine 0.73 (0.66-1.25) mg/dL Estimated GFR > 60.0 ML/MIN Glucose 153 H (74-106) mg/dL Calcium 7.9 L (8.4-10.2) mg/dL Total Bilirubin 0.70 (0.2-1.3) mg/dL AST 37 (17-59) U/L ALT 33 (0-50) U/L Alkaline Phosphatase 60 (38-126) U/L Serum Total Protein 6.5 (6.3-8.2) g/dL Albumin 3.1 L (3.5-5.0) g/dL Multi-Disciplinary Progress Notes: Multi-Disciplinary Progress Notes 06/07/19 10:28 Case Management Note by Shadia Garcia S/W PATIENT'S - SHE IS INTERESTED IN HOME HEALTH CARE POSSIBLEY AT [place]. SHE WAS GIVEN INFO ON HOME HEALTH CARE AND THE [employer] THIS COMPANY TAKES PATIENT'S INSURANCE. SHE STATED SHE WOULD LIKE TO THINK ABOUT IT AND DECIDE IF THIS IS NEEDED CLOSER TO TIME OF [place]. Initialized on 06/07/19 10:28 - END OF NOTE Assessment/Plan (1) Acute cholecystitis Current Visit: Yes Status: Acute Assessment & Plan: chart check, d/w RN. improving s/p lap bhavana for gangrenous cholecystitis. -cont abx -change to percocet -cont diet as stefanie -OOB, IS, Pulm toilet. Code(s): K81.0 - ACUTE CHOLECYSTITIS
[2019-06-07] MEDS: PERCOCET TABLET 5/325MG PO PRN (20:09)
[2019-06-07] MEDS: ZYLOPRIM 100 MG PO SCH (20:47)
[2019-06-08] MEDS: Merrem 1 GM 1 G in Sodium Chloride 100ML MINI-BAG PLUS 100 ML IV SCH ×3 (05:22→21:46)
[2019-06-08] MEDS: PERCOCET TABLET 5/325MG PO PRN ×2 (05:30→11:03)
[2019-06-08] MEDS ORDERED: TROUGH DRUG LEVELS IJ ONE (05:30)
[2019-06-08 05:52] LABS: Hematocrit 38.1 % (42-50); Hemoglobin 12.1 gm/dl (12.5-18.0); Mean Cell Volume 90.5 fl (78-100); Mean Corpuscular Hemoglobin 28.7 pg (26-32); Mean Corpuscular Hgb Concent. 31.8 g/dl (32-36); Mean Platelet Volume 10.5 fl (7.5-11.0); Platelet Count 220 K/mm3 (150-450); Red Blood Count 4.21 M/mm3 (4.1-5.6); Red Cell Distribution Width 14.9 % (11.5-14.0); White Blood Count 14.5 K/mm3 (4.0-10.5)
[2019-06-08 05:55] LABS: ALBUMIN 3.3 g/dL (3.5-5.0); ALKALINE PHOSPHATASE 69 U/L (38-126); ANION GAP 8.1 MEQ/L (5-15); BLOOD UREA NITROGEN 15 mg/dL (9-20); CHLORIDE 98 mmol/L (98-107); Calcium 8.1 mg/dL (8.4-10.2); Carbon Dioxide 33 mmol/L (22-30); Glucose 149 mg/dL (74-106); Potassium 3.6 mmol/L (3.5-5.1); SGOT/AST 42 U/L (17-59); SGPT/ALT 37 U/L (0-50); SODIUM 135 mmol/L (137-145)
[2019-06-08] MEDS: VANCOMYCIN 1 GRAM/200 ML BAG 1 GM/200 ML PIGGYBACK IV SCH ×3 (05:56→22:23)
[2019-06-08 07:18] LABS: ANISOCYTOSIS 1+; BAND 3 % (0.0-2.0); Eosinophil 3 % (0.00-3.0); Lymphocytes 11 % (24-44); Monocyte 6 % (0.0-12.0); Neutrophils 77 % (36.-66.); Platelet Estimate NORMAL (NORMAL); Polychromasia RARE; Total Cells Counted 100; Toxic Granulation 1+
[2019-06-08] MEDS: DILAUDID 2 MG INJECTION IV PRN (07:43)
--- NOTE | 2019-06-08 08:39 | PCM.NOTE ---
Date and Time: 06/08/19 0837 Subjective Assessment: patient improving, still on liquid diet. no bm, passing flatus. c/o right foot pain and difficulty walking. still requiring oxygen Objective Exam General Appearance: no apparent distress, alert Respiratory Exam: wheezing Cardiovascular Exam: regular rate/rhythm, normal heart sounds Gastrointestinal/Abdomen Exam: soft, No normal bowel sounds, No tenderness, No mass Extremity Exam: normal inspection, normal range of motion OBJECTIVE DATA Vital Signs: Vital Signs - 24 hr Temp Pulse Resp BP Pulse Ox 06/08/19 08:05 95 06/08/19 08:00 20 06/08/19 07:20 99.1 F 93 H 20 126/79 96 06/08/19 04:20 99.4 F 92 H 24 137/91 97 06/08/19 04:00 24 06/08/19 00:00 98.7 F 88 20 104/68 96 06/07/19 20:00 93 H 26 H 06/07/19 19:53 99.0 F 92 H 26 H 118/58 96 06/07/19 19:19 96 06/07/19 16:00 98.3 F 85 22 101/64 96 06/07/19 14:50 96 06/07/19 13:00 89 06/07/19 12:22 93 L 06/07/19 12:00 98.3 F 88 23 131/73 96 06/07/19 08:42 92 H Pain Assessment - Last Documented Pain Intensity 7 Pain Scale Used 0-10 Pain Scale Intake and Output: Intake & Output 06/05/19 06/06/19 06/07/19 06/08/19 11:59 11:59 11:59 11:59 Intake Total 3341 2460 3290 4023 Output Total 1190 1430 2800 2160 Balance 2151 8645 165 3715 Weight 110.8 kg 116.4 kg 116.4 kg 112.4 kg Lab Results: Accuchecks Date 06/08/19 Date 06/07/19 Date 06/07/19 Time 07:30 Time 16:30 Time 11:30 Accucheck Value: 141 Accucheck Value: 121 Accucheck Value: 144 Lab Results-Last 24 Hours 06/07/19 06/07/19 06/08/19 Range/Units 09:10 09:10 05:30 WBC 15.8 H (4.0-10.5) K/mm3 RBC 4.07 L (4.1-5.6) M/mm3 Hgb 11.7 L (12.5-18.0) gm/dl Hct 36.6 L (42-50) % MCV 89.9 (78-100) fl MCH 28.7 (26-32) pg MCHC 32.0 (32-36) g/dl RDW 14.7 H (11.5-14.0) % Plt Count 194 (150-450) K/mm3 MPV 11.0 (7.5-11.0) fl Segmented Neutrophils 83 H (36.-66.) % Band Neutrophils 3 H (0.0-2.0) % Lymphocytes (Manual) 9 L (24-44) % Monocytes (Manual) 4 (0.0-12.0) % Eosinophils (Manual) 1 (0.00-3.0) % Toxic Granulation 2+ Platelet Estimate NORMAL (NORMAL) RBC Morphology ABNORMAL Polychromasia RARE Anisocytosis 1+ Sodium 133 L (137-145) mmol/L Potassium 3.7 (3.5-5.1) mmol/L Chloride 98 (98-107) mmol/L Carbon Dioxide 29 (22-30) mmol/L Anion Gap 9.4 (5-15) MEQ/L BUN 16 (9-20) mg/dL Creatinine 0.73 (0.66-1.25) mg/dL Estimated GFR > 60.0 ML/MIN Glucose 153 H (74-106) mg/dL Calcium 7.9 L (8.4-10.2) mg/dL Total Bilirubin 0.70 (0.2-1.3) mg/dL AST 37 (17-59) U/L ALT 33 (0-50) U/L Alkaline Phosphatase 60 (38-126) U/L Serum Total Protein 6.5 (6.3-8.2) g/dL Albumin 3.1 L (3.5-5.0) g/dL Vancomycin Trough 10.58 (10-20) ug/mL 06/08/19 06/08/19 Range/Units 05:30 05:30 WBC 14.5 H (4.0-10.5) K/mm3 RBC 4.21 (4.1-5.6) M/mm3 Hgb 12.1 L (12.5-18.0) gm/dl Hct 38.1 L (42-50) % MCV 90.5 (78-100) fl MCH 28.7 (26-32) pg MCHC 31.8 L (32-36) g/dl RDW 14.9 H (11.5-14.0) % Plt Count 220 (150-450) K/mm3 MPV 10.5 (7.5-11.0) fl Segmented Neutrophils 77 H (36.-66.) % Band Neutrophils 3 H (0.0-2.0) % Lymphocytes (Manual) 11 L (24-44) % Monocytes (Manual) 6 (0.0-12.0) % Eosinophils (Manual) 3 (0.00-3.0) % Toxic Granulation 1+ Platelet Estimate NORMAL (NORMAL) RBC Morphology ABNORMAL Polychromasia RARE Anisocytosis 1+ Sodium 135 L (137-145) mmol/L Potassium 3.6 (3.5-5.1) mmol/L Chloride 98 (98-107) mmol/L Carbon Dioxide 33 H (22-30) mmol/L Anion Gap 8.1 (5-15) MEQ/L BUN 15 (9-20) mg/dL Creatinine 0.70 (0.66-1.25) mg/dL Estimated GFR > 60.0 ML/MIN Glucose 149 H (74-106) mg/dL Calcium 8.1 L (8.4-10.2) mg/dL Total Bilirubin 0.70 (0.2-1.3) mg/dL AST 42 (17-59) U/L ALT 37 (0-50) U/L Alkaline Phosphatase 69 (38-126) U/L Serum Total Protein 7.0 (6.3-8.2) g/dL Albumin 3.3 L (3.5-5.0) g/dL Vancomycin Trough (10-20) ug/mL Radiology Exams: Radiology Procedures Category Date Time Status FOOT (2 VIEWS) Routine Exams 06/08/19 Ordered Multi-Disciplinary Progress Notes: Multi-Disciplinary Progress Notes 06/07/19 10:28 Case Management Note by Shadia Garcia S/W PATIENT'S - SHE IS INTERESTED IN HOME HEALTH CARE POSSIBLEY AT [place]. SHE WAS GIVEN INFO ON HOME HEALTH CARE AND THE [employer] THIS COMPANY TAKES PATIENT'S INSURANCE. SHE STATED SHE WOULD LIKE TO THINK ABOUT IT AND DECIDE IF THIS IS NEEDED CLOSER TO TIME OF DC. Initialized on 06/07/19 10:28 - END OF NOTE Assessment/Plan (1) Pneumonia Current Visit: Yes Status: Acute Qualifiers: Pneumonia type: due to unspecified organism Assessment & Plan: on meropenem and vanc Code(s): J18.9 - PNEUMONIA, UNSPECIFIED ORGANISM (2) Acute cholecystitis Current Visit: Yes Status: Acute Code(s): K81.0 - ACUTE CHOLECYSTITIS (3) Sinus tachycardia Current Visit: Yes Status: Resolved Code(s): R00.0 - TACHYCARDIA, UNSPECIFIED (4) Left bundle branch block (LBBB) Current Visit: Yes Status: Acute Code(s): I44.7 - LEFT BUNDLE-BRANCH BLOCK, UNSPECIFIED (5) Coronary artery disease Current Visit: Yes Status: Chronic Code(s): I25.10 - ATHSCL HEART DISEASE OF [place] CORONARY ARTERY W/O ANG PCTRS (6) Foot pain, right Current Visit: Yes Status: Acute Assessment & Plan: check uric acid and xray Code(s): M79.671 - PAIN IN RIGHT FOOT
--- NOTE | 2019-06-08 09:13 | XRAY ---
Indication: Pain. Difficulty walking. Comparison: None 2 nonweightbearing views of the right foot demonstrates small posterior heel spur. No other bony, articular, or soft tissue abnormalities.
[2019-06-08] MEDS: Coreg 6.25 MG PO SCH ×2 (09:57→21:46)
[2019-06-08] MEDS: Colace 100 MG PO PRN (09:57)
[2019-06-08] MEDS: CLARITIN 10 MG PO SCH (09:57)
[2019-06-08] MEDS: DELTASONE 20 MG PO SCH (09:58)
[2019-06-08] MEDS: ECOTRIN 81 MG PO SCH (09:58)
[2019-06-08] MEDS: ZOCOR 20MG PO SCH (09:58)
[2019-06-08] MEDS ORDERED: Dulcolax 10 MG SUPP PR ONE (14:00)
[2019-06-08] MEDS: HUMULIN R SQ PRN (16:38)
[2019-06-08] MEDS: ZYLOPRIM 100 MG PO SCH (21:46)
[2019-06-09 05:22] LABS: Hematocrit 38.2 % (42-50); Hemoglobin 12.1 gm/dl (12.5-18.0); Mean Corpuscular Hemoglobin 28.8 pg (26-32); Mean Corpuscular Hgb Concent. 31.7 g/dl (32-36); Mean Platelet Volume 10.5 fl (7.5-11.0); Platelet Count 276 K/mm3 (150-450); Red Cell Distribution Width 14.7 % (11.5-14.0); White Blood Count 15.7 K/mm3 (4.0-10.5)
[2019-06-09 05:37] LABS: ALBUMIN 3.3 g/dL (3.5-5.0); ALKALINE PHOSPHATASE 67 U/L (38-126); ANION GAP 10.7 MEQ/L (5-15); BLOOD UREA NITROGEN 17 mg/dL (9-20); CHLORIDE 99 mmol/L (98-107); Calcium 8.5 mg/dL (8.4-10.2); Carbon Dioxide 32 mmol/L (22-30); Creatinine 1 0.68 mg/dL (0.66-1.25); Glucose 126 mg/dL (74-106); Potassium 4.1 mmol/L (3.5-5.1); SGOT/AST 49 U/L (17-59); SGPT/ALT 41 U/L (0-50); SODIUM 138 mmol/L (137-145); Total Protein 7.1 g/dL (6.3-8.2)
[2019-06-09] MEDS: Merrem 1 GM 1 G in Sodium Chloride 100ML MINI-BAG PLUS 100 ML IV SCH ×3 (05:41→22:17)
[2019-06-09] MEDS: VANCOMYCIN 1 GRAM/200 ML BAG 1 GM/200 ML PIGGYBACK IV SCH ×3 (06:18→23:27)
[2019-06-09 06:41] LABS: ATYPICAL LYMPHS 1 %; BAND 2 % (0.0-2.0); Eosinophil 2 % (0.00-3.0); Lymphocytes 17 % (24-44); Monocyte 10 % (0.0-12.0); Neutrophils 68 % (36.-66.); Total Cells Counted 100
[2019-06-09 06:42] LABS: Platelet Estimate NORMAL (NORMAL); Toxic Granulation 1+
--- NOTE | 2019-06-09 09:15 | PCM.NOTE ---
Date and Time: 06/09/19911 Subjective Assessment: patient is improving, tolerating regular diet at this time. has not had a bowel movement since surgery but passing flatus, he is tolerating activity better and compliant with IS as encouraged. Objective Exam General Appearance: no apparent distress, obese Neurologic Exam: alert, oriented x 3 Respiratory Exam: rhonchi Cardiovascular Exam: regular rate/rhythm, normal heart sounds Gastrointestinal/Abdomen Exam: soft, normal bowel sounds, other (dressings clean /dry/intact), No tenderness, No mass Extremity Exam: normal inspection, normal range of motion OBJECTIVE DATA Vital Signs: Vital Signs - 24 hr Temp Pulse Resp BP Pulse Ox 06/09/19 08:00 98.9 F 83 20 146/71 94 L 06/09/19 06:54 94 L 06/09/19 04:15 98.6 F 85 20 129/76 95 06/08/19 23:47 99.2 F 91 H 20 120/65 95 06/08/19 20:20 87 L 06/08/19 20:09 98.7 F 99 H 22 140/81 93 L 06/08/19 16:00 98.3 F 84 18 130/63 95 06/08/19 12:00 98 F 88 24 110/74 95 Pain Assessment - Last Documented Pain Intensity 0 Pain Scale Used 0-10 Pain Scale Intake and Output: Intake & Output 06/06/19 06/07/19 06/08/19 06/09/19 11:59 11:59 11:59 11:59 Intake Total 2460 3290 4023 1054 Output Total 1430 2800 2160 790 Balance 6845 727 8543 264 Weight 116.4 kg 116.4 kg 112.4 kg Lab Results: Accuchecks Date 06/08/19 Date 06/08/19 Time 16:30 Time 11:30 Accucheck Value: 144 Accucheck Value: 168 Accucheck Value: 134 Lab Results-Last 24 Hours 06/05/19 06/08/19 06/09/19 Range/Units 09:34 09:45 04:30 WBC 15.7 H (4.0-10.5) K/mm3 RBC 4.20 (4.1-5.6) M/mm3 Hgb 12.1 L (12.5-18.0) gm/dl Hct 38.2 L (42-50) % MCV 91.0 (78-100) fl MCH 28.8 (26-32) pg MCHC 31.7 L (32-36) g/dl RDW 14.7 H (11.5-14.0) % Plt Count 276 (150-450) K/mm3 MPV 10.5 (7.5-11.0) fl Segmented Neutrophils 68 H (36.-66.) % Band Neutrophils 2 (0.0-2.0) % Lymphocytes (Manual) 17 L (24-44) % Monocytes (Manual) 10 (0.0-12.0) % Eosinophils (Manual) 2 (0.00-3.0) % Atypical Lymphocytes 1 % Toxic Granulation 1+ Platelet Estimate NORMAL (NORMAL) RBC Morphology NORMAL Sodium (137-145) mmol/L Potassium (3.5-5.1) mmol/L Chloride (98-107) mmol/L Carbon Dioxide (22-30) mmol/L Anion Gap (5-15) MEQ/L BUN (9-20) mg/dL Creatinine (0.66-1.25) mg/dL Estimated GFR ML/MIN Glucose (74-106) mg/dL Uric Acid 3.7 (3.5-7.2) mg/dL Calcium (8.4-10.2) mg/dL Total Bilirubin (0.2-1.3) mg/dL AST (17-59) U/L ALT (0-50) U/L Alkaline Phosphatase (38-126) U/L Serum Total Protein (6.3-8.2) g/dL Albumin (3.5-5.0) g/dL Surg PTH Diagnosis See Note H 06/09/19 Range/Units 04:30 WBC (4.0-10.5) K/mm3 RBC (4.1-5.6) M/mm3 Hgb (12.5-18.0) gm/dl Hct (42-50) % MCV (78-100) fl MCH (26-32) pg MCHC (32-36) g/dl RDW (11.5-14.0) % Plt Count (150-450) K/mm3 MPV (7.5-11.0) fl Segmented Neutrophils (36.-66.) % Band Neutrophils (0.0-2.0) % Lymphocytes (Manual) (24-44) % Monocytes (Manual) (0.0-12.0) % Eosinophils (Manual) (0.00-3.0) % Atypical Lymphocytes % Toxic Granulation Platelet Estimate (NORMAL) RBC Morphology Sodium 138 (137-145) mmol/L Potassium 4.1 (3.5-5.1) mmol/L Chloride 99 (98-107) mmol/L Carbon Dioxide 32 H (22-30) mmol/L Anion Gap 10.7 (5-15) MEQ/L BUN 17 (9-20) mg/dL Creatinine 0.68 (0.66-1.25) mg/dL Estimated GFR > 60.0 ML/MIN Glucose 126 H (74-106) mg/dL Uric Acid (3.5-7.2) mg/dL Calcium 8.5 (8.4-10.2) mg/dL Total Bilirubin 0.70 (0.2-1.3) mg/dL AST 49 (17-59) U/L ALT 41 (0-50) U/L Alkaline Phosphatase 67 (38-126) U/L Serum Total Protein 7.1 (6.3-8.2) g/dL Albumin 3.3 L (3.5-5.0) g/dL Surg PTH Diagnosis Radiology Exams: Radiology Procedures Category Date Time Status FOOT (2 VIEWS) Routine Exams 06/08/19 08:56 Completed Multi-Disciplinary Progress Notes: Multi-Disciplinary Progress Notes 06/08/19 10:38 Case Management Note by Shadia Garcia NO CHANGE IN DC PLANS AT THIS TIME- STILL UNDECIDED REGARDING HOME HEALTH CARE AT THIS TIME. WILL CONTINUE TO FOLLOW Initialized on 06/08/19 10:38 - END OF NOTE Assessment/Plan (1) Pneumonia Current Visit: Yes Status: Acute Qualifiers: Pneumonia type: due to unspecified organism Assessment & Plan: improved, on meropenem and vanc, added prednisone yesterday for bronchospasm so may contribute to mild elevation of wbc, improving clinically. will attempt to wean oxygen, home when ok with surgery and back on room air Code(s): J18.9 - PNEUMONIA, UNSPECIFIED ORGANISM (2) Acute cholecystitis Current Visit: Yes Status: Acute Code(s): K81.0 - ACUTE CHOLECYSTITIS (3) Sinus tachycardia Current Visit: Yes Status: Resolved Code(s): R00.0 - TACHYCARDIA, UNSPECIFIED (4) Left bundle branch block (LBBB) Current Visit: Yes Status: Acute Code(s): I44.7 - LEFT BUNDLE-BRANCH BLOCK, UNSPECIFIED (5) Coronary artery disease Current Visit: Yes Status: Chronic Code(s): I25.10 - ATHSCL HEART DISEASE OF [place] CORONARY ARTERY W/O ANG PCTRS (6) Foot pain, right Current Visit: Yes Status: Acute Assessment & Plan: xray negative, uric acid not elevated Code(s): M79.671 - PAIN IN RIGHT FOOT
[2019-06-09] MEDS ORDERED: Dulcolax 10 MG SUPP PR PRN (10:00)
[2019-06-09] MEDS: DELTASONE 20 MG PO SCH (10:19)
[2019-06-09] MEDS: ZOCOR 20MG PO SCH (10:19)
[2019-06-09] MEDS: CLARITIN 10 MG PO SCH (10:19)
[2019-06-09] MEDS: Miralax Powder 17GM PACKET PO SCH (10:19)
[2019-06-09] MEDS: Coreg 6.25 MG PO SCH ×2 (10:19→22:17)
[2019-06-09] MEDS: ECOTRIN 81 MG PO SCH (10:19)
[2019-06-09] MEDS: Colace 100 MG PO PRN ×2 (10:19→22:18)
[2019-06-09] MEDS: HUMULIN R SQ PRN (16:53)
[2019-06-09] MEDS: ZYLOPRIM 100 MG PO SCH (22:17)
[2019-06-10 05:58] LABS: Hematocrit 37.6 % (42-50); Hemoglobin 12.1 gm/dl (12.5-18.0); Mean Cell Volume 89.1 fl (78-100); Mean Corpuscular Hemoglobin 28.7 pg (26-32); Mean Corpuscular Hgb Concent. 32.2 g/dl (32-36); Mean Platelet Volume 10.3 fl (7.5-11.0); Platelet Count 291 K/mm3 (150-450); Red Blood Count 4.22 M/mm3 (4.1-5.6); Red Cell Distribution Width 14.8 % (11.5-14.0); White Blood Count 13.7 K/mm3 (4.0-10.5)
[2019-06-10 06:02] LABS: ALKALINE PHOSPHATASE 61 U/L (38-126); BLOOD UREA NITROGEN 21 mg/dL (9-20); CHLORIDE 104 mmol/L (98-107); Calcium 8.2 mg/dL (8.4-10.2); Carbon Dioxide 29 mmol/L (22-30); Creatinine 1 0.66 mg/dL (0.66-1.25); Glucose 111 mg/dL (74-106); Potassium 3.7 mmol/L (3.5-5.1); SGOT/AST 58 U/L (17-59); SGPT/ALT 57 U/L (0-50); SODIUM 139 mmol/L (137-145); Total Protein 6.7 g/dL (6.3-8.2)
[2019-06-10] MEDS: Merrem 1 GM 1 G in Sodium Chloride 100ML MINI-BAG PLUS 100 ML IV SCH (06:14)
[2019-06-10] MEDS: VANCOMYCIN 1 GRAM/200 ML BAG 1 GM/200 ML PIGGYBACK IV SCH (06:47)
[2019-06-10 07:24] VITALS: BP 147/76; PULSE 85
[2019-06-10 08:19] VITALS: O2SAT 92
[2019-06-10 08:50] LABS: BAND 1 % (0.0-2.0); Eosinophil 3 % (0.00-3.0); Lymphocytes 19 % (24-44); Monocyte 12 % (0.0-12.0); Neutrophils 65 % (36.-66.); Platelet Estimate NORMAL (NORMAL); Total Cells Counted 100
[2019-06-10 08:51] LABS: Toxic Granulation 1+
[2019-06-10] MEDS ORDERED: Klor Con 10 MEQ PO ONE (08:58)
[2019-06-10] MEDS: CLARITIN 10 MG PO SCH (10:35)
[2019-06-10] MEDS: ZOCOR 20MG PO SCH (10:35)
[2019-06-10] MEDS: ECOTRIN 81 MG PO SCH (10:35)
[2019-06-10] MEDS: Coreg 6.25 MG PO SCH (10:35)
[2019-06-10] MEDS: DELTASONE 20 MG PO SCH (10:35)
[2019-06-10] MEDS: Miralax Powder 17GM PACKET PO SCH (10:36)
[2019-06-10] MEDS ORDERED: Coreg 6.25 MG PO SCH (10:57)
[2019-06-10] MEDS ORDERED: Coreg 6.25 MG PO ONE (11:01)
--- NOTE | 2019-06-10 14:23 | PCM.NOTE ---
Date and Time: 06/10/19 1418 Subjective Assessment: Patient has been weaned to room air yesterday AM. He continues to use a walker to walk due to right foot pain and mild swelling. He had a stool this AM and is eating and drinking fine. THe general surgeon has written a script for antibiotics and pain medication for him that are on the chart. He would like to go home and is feeling much better. He had an unsustained run of 8 beats of V- tach yesterday during the day that Dr. Tovar was notified of. - Review of Systems Constitutional: No Symptoms Eyes: No Symptoms Ears, Nose, & Throat: No Symptoms Respiratory: No Symptoms Cardiac: No Symptoms Abdominal/Gastrointestinal: No Symptoms Genitourinary Symptoms: No Symptoms Musculoskeletal: Other (right foot pain, no pain in left foot) Skin: Other (mild erythema of top of right foot) Objective Exam General Appearance: no apparent distress, obese, other (ambulates with walker) Neurologic Exam: alert, cooperative, normal mood/affect Skin Exam: normal color, warm, other (mild erythema of dorsal aspect of right foot) Respiratory Exam: normal breath sounds, lungs clear, No crackles/rales, No rhonchi, No wheezing Cardiovascular Exam: regular rate/rhythm, normal heart sounds, No murmur, No friction rub, No gallop Gastrointestinal/Abdomen Exam: soft, normal bowel sounds, other (dressing in place) Extremity Exam: other (+1 edema of right lower extremity; no swelling of left lower extremity) OBJECTIVE DATA Vital Signs: Vital Signs - 24 hr Temp Pulse Resp BP Pulse Ox 06/10/19 12:00 20 06/10/19 08:17 92 L 06/10/19 08:00 20 06/10/19 07:23 98.1 F 85 20 147/76 95 06/10/19 04:00 98.2 F 90 18 136/65 95 06/10/19 00:00 20 06/09/19 23:29 99.0 F 89 20 134/74 98 06/09/19 20:06 92 L 06/09/19 20:00 98.6 F 102 H 19 124/71 96 06/09/19 16:00 99.3 F 91 H 18 127/63 93 L Pain Assessment - Last Documented Pain Intensity 0 Pain Scale Used 0-10 Pain Scale Intake and Output: Intake & Output 06/08/19 06/09/19 06/10/19 06/11/19 06:59 06:59 06:59 06:59 Intake Total 4027 1055 8795 240 Output Total 2560 790 660 500 Balance 0662 960 3962 -260 Weight 112.4 kg 112.6 kg 112.8 kg Lab Results: Accuchecks Date 06/10/19 Date 06/10/19 Date 06/10/19 Date 06/09/19 Time 11:30 Time 05:00 Time 21:30 Time 16:30 Accucheck Value: 139 Accucheck Value: 147 Accucheck Value: 169 Lab Results-Last 24 Hours 06/10/19 06/10/19 06/10/19 Range/Units 05:30 05:30 05:30 WBC 13.7 H (4.0-10.5) K/mm3 RBC 4.22 (4.1-5.6) M/mm3 Hgb 12.1 L (12.5-18.0) gm/dl Hct 37.6 L (42-50) % MCV 89.1 (78-100) fl MCH 28.7 (26-32) pg MCHC 32.2 (32-36) g/dl RDW 14.8 H (11.5-14.0) % Plt Count 291 (150-450) K/mm3 MPV 10.3 (7.5-11.0) fl Segmented Neutrophils 65 (36.-66.) % Band Neutrophils 1 (0.0-2.0) % Lymphocytes (Manual) 19 L (24-44) % Monocytes (Manual) 12 (0.0-12.0) % Eosinophils (Manual) 3 (0.00-3.0) % Toxic Granulation 1+ Platelet Estimate NORMAL (NORMAL) Sodium 139 (137-145) mmol/L Potassium 3.7 (3.5-5.1) mmol/L Chloride 104 (98-107) mmol/L Carbon Dioxide 29 (22-30) mmol/L Anion Gap 10.0 (5-15) MEQ/L BUN 21 H (9-20) mg/dL Creatinine 0.66 (0.66-1.25) mg/dL Estimated GFR > 60.0 ML/MIN Glucose 111 H (74-106) mg/dL Calcium 8.2 L (8.4-10.2) mg/dL Magnesium 1.9 (1.6-2.3) mg/dL Total Bilirubin 0.50 (0.2-1.3) mg/dL AST 58 (17-59) U/L ALT 57 H (0-50) U/L Alkaline Phosphatase 61 (38-126) U/L Serum Total Protein 6.7 (6.3-8.2) g/dL Albumin 3.0 L (3.5-5.0) g/dL Radiology Exams: Radiology Procedures Category Date Time Status ULTRASOUND BILATERAL LOWER EXTREMITY [VENOUS BILATERAL Exams 06/10/19 11:12 Taken EXTREMITY] [US] Stat Multi-Disciplinary Progress Notes: Multi-Disciplinary Progress Notes 06/10/19 13:26 Respiratory Note by Jennifer,Pamela Went to see patient at 1234. Patient was eating lunch at that time. Patient is doing IS on own as well. Initialized on 06/10/19 13:26 - END OF NOTE 06/09/19 14:32 Nutrition Note by Sakina Colmenares F/u Note: Diet advanced to regular with 50-100% po intake. Labs 06/09= glu 126, alb 3.3, hgb 12.1, hct 38.2. admission weight 110.8 kg; current weight 112.6 kg. Recommend cardiac diet. goal #1) maintain po intake >=75% Will monitor and f/ u prn. MELISSA Mitchell Initialized on 06/09/19 14:32 - END OF NOTE Assessment/Plan (1) Status post cholecystectomy Status: Acute Assessment & Plan: Management per general surgeons. Code(s): Z90.49 - ACQUIRED ABSENCE OF OTHER SPECIFIED PARTS OF DIGESTIVE TRACT (2) Non-sustained ventricular tachycardia Status: Acute Assessment & Plan: Will give 40 Meq of KCl to keep potassium above 4. CHecked magnesium and it is 1.9. Dr. Philip Browne notified and wants patient to continue 40 meq Kcl at home and also to increase carvedilol to 12.5 mg po bid. Patient has had no further episodes. Code(s): I47.2 - VENTRICULAR TACHYCARDIA (3) Coronary artery disease Status: Chronic Assessment & Plan: Continue follow up with varnish maker helper. Surgeon said ok to restart Brillenta per nurse Denise's report. Code(s): I25.10 - ATHSCL HEART DISEASE OF [place] CORONARY ARTERY W/O ANG PCTRS (4) Right leg swelling Status: Acute Assessment & Plan: dopplers of both lower extremities were negative. Code(s): M79.89 - OTHER SPECIFIED SOFT TISSUE DISORDERS (5) Foot pain, right Status: Acute Assessment & Plan: X-ray was neg; patient feels like this is gout. Will give some prednisone to take at home. Follow up with PCP. Code(s): M79.671 - PAIN IN RIGHT FOOT (6) Gait instability Status: Acute Assessment & Plan: Order for walker written. Code(s): R26.81 - UNSTEADINESS ON FEET
--- NOTE | 2019-06-10 21:07 | XRAY ---
Indication: Right leg swelling. Two-dimensional sonogram and color Doppler imaging of the major venous vessels of the left and right leg was performed. Comparison: None No thrombus seen in the examined deep venous vessels of the left and right leg including greater saphenous vein. Veins demonstrate normal compressibility. Venous waveforms are normal with and without augmentation. Impression: Left and right legs negative for DVT. Comment: Preliminary report was given.
[2019-06-10] MEDS ORDERED: COREG 12.5 MG PO SCH (22:00)
== END 2019-06-10 13:05 | disposition home or self-care (01) | DRG 988 ==
LOC: ED 18:09 → MED SURG 21:17 → ICU 06-05 02:30 → MED SURG 06-08 11:45
PROVIDERS: ADMIT Surgery; ATTEND Surgery
PROC: 0FT44ZZ Resection of Gallbladder, Percutaneous Endoscopic Approach (ICD-10-PCS; principal; 2019-06-05)
DX: J18.9 Pneumonia, unspecified organism (principal); K81.0 Acute cholecystitis; I47.2 Ventricular tachycardia; I44.7 Left bundle-branch block, unspecified; I25.10 Atherosclerotic heart disease of native coronary artery without angina pectoris; Z86.79 Personal history of other diseases of the circulatory system; R06.02 Shortness of breath; Z79.899 Other long term (current) drug therapy; I10 Essential (primary) hypertension; E78.00 Pure hypercholesterolemia, unspecified; I25.2 Old myocardial infarction; K82.A1 Gangrene of gallbladder in cholecystitis; K59.00 Constipation, unspecified; M79.671 Pain in right foot; M79.89 Other specified soft tissue disorders; R26.81 Unsteadiness on feet; Z98.890 Other specified postprocedural states
CPT/HCPCS: 36000; 36415; 36600; 71045; 73620; 74177; 80053; 80202; 81001; 82150; 82248; 82375; 82803; 82962; 83036; 83605; 83690; 83735; 84484; 84550; 85025; 85610; 87040; 88304; 93005; 93041; 93970; 94002; 94640; 94760; 94762; 96374; 96375; 99285; J0330; J1170; J1815; J2250; J2270; J2370; J2405; J3010; J3480; A9270-GY; J3370

== ENCOUNTER 2022-08-14 20:18 | Emergency (ER) | payer BC ==
[2022-08-14] MEDS ORDERED: MORPHINE SULFATE 4 MG INJ IV ONE (20:20)
[2022-08-14] MEDS ORDERED: BABY ASPIRIN 81 MG CHEW PO ONE (20:20)
[2022-08-14] MEDS ORDERED: Zofran 4 MG/2 ML VIAL IV ONE (20:20)
[2022-08-14 20:30] LABS: Absolute Neutrophil Ct (ANC) 6.08 x10^3/uL (1.4-6.9); BASOPHIL % 0.9 % (0.0-0.4); Basophil (Absolute #) 0.11 x10^3/uL (0-0.4); Eosinophil % 3.5 % (0.00-5.0); Eosinophil (Absolute #) 0.42 x10^3/uL (0-0.5); Hematocrit 46.2 % (42-50); Hemoglobin 14.9 g/dL (12.5-18.0); IMMATURE GRAN # 0.04 x10^3u/L (0.00-0.03); IMMATURE GRAN % 0.3 % (0.00-0.4); Lymphocyte (Absolute #) 3.99 x10^3/uL (1.0-4.6); Lymphocytes % 33.3 % (24.0-44.0); Mean Cell Volume 87.7 fL (78-100); Mean Corpuscular Hemoglobin 28.3 pg (26-32); Mean Corpuscular Hgb Concent. 32.3 g/dL (32-36); Mean Platelet Volume 10.5 fL (7.5-11.0); Monocyte (Absolute #) 1.34 x10^3/uL (0.0-1.3); Monocytes % 11.2 % (0.0-12.0); Neutrophil % 50.8 % (36.0-66.0); Platelet Count 234 x10^3/uL (150-450); Red Blood Count 5.27 x10^6/uL (4.1-5.6); Red Cell Distribution Width 13.5 % (11.5-14.0)
[2022-08-14] MEDS ORDERED: NITRO-BID 2% UD PACKETS TOP ONE (20:30)
[2022-08-14] MEDS ORDERED: Zofran 4 MG/2 ML VIAL ONE (20:33)
[2022-08-14] MEDS ORDERED: BABY ASPIRIN 81 MG CHEW ONE (20:34)
[2022-08-14] MEDS ORDERED: MORPHINE SULFATE 4 MG INJ ONE (20:34)
[2022-08-14] MEDS ORDERED: NITRO-BID 2% UD PACKETS ONE (20:34)
--- NOTE | 2022-08-14 20:44 | ERPHSYRPT ---
- History of Present Illness Time Seen by Provider: 08/14/22 20:29 Historian: patient Exam Limitations: no limitations Patient Subjective Stated Complaint: pacemaker placed at week ago at [facility], chest pain started about 1999 when patient was walking around [facility] Triage Nursing Assessment: pt ambulatory to bed by self, pt alert and oriented x3, pt c/o 01/26 sharp chest pain that came suddenly, pt had a pacemaker placed last week at [facility], resting or sitting does not help the pain, pt clutching chest upon arrival Physician History: 67 years old male with history of coronary artery disease status post stenting, pacemaker placement almost 7 days ago at [facility] presented in the ER with sudden onset substernal chest pain moderate to severe sharp with some shortness of breath while he was walking at [facility] prior to arrival. Denies any significant aggravating or relieving factors. No fever chills or cough reported. Reports symptoms similar to last time when he had stents placed in. Timing/Duration: hour(s) (0.5), constant, sudden, worse Activities at Onset: activity Quality: sharpness Location: substernal Chest Pain Radiation: no radiation Severity of Pain-Max: severe Severity of Pain-Current: severe Modifying Factors: Improves With: nothing Associated Symptoms: palpitations, shortness of breath Prior Chest Pain/Cardiac Workup: cardiac cath, heart attack, recently seen/treated Nitro Today/Relief: no nitro taken today Aspirin Treatment Today: unknown Allergies/Adverse Reactions: oxytetracycline [From Terramycin] Allergy (Verified 08/14/22 20:20) oxytetracycline HCl [From Terramycin] Allergy (Verified 08/14/22 20:20) Home Medications: Doxylamine Succinate [Unisom Sleep Aid] 25 mg PO QHS 02/21/18 [History] Loratadine 10 mg [Claritin 10 mg] 10 mg PO DAILY 02/21/18 [History] Aspirin EC 81 mg [Ecotrin 81 mg] 81 mg PO DAILY 06/03/19 [History] Atorvastatin Calcium [Lipitor] 80 mg PO DAILY 06/03/19 [History] Diclofenac Sodium 50 mg [Voltaren 50 mg] 50 mg PO BID 06/03/19 [History] allopurinoL [Allopurinol] 100 mg PO HS 06/03/19 [History] hydroCHLOROthiazide [Hydrochlorothiazide] 12.5 mg PO DAILY 06/03/19 [History] Hx Tetanus, Diphtheria Vaccination/Date Given: Yes Hx Influenza Vaccination/Date Given: Yes Hx Pneumococcal Vaccination/Date Given: No Immunizations Up to Date: Yes Travel Risk - International Travel Have you traveled outside of the country in past 3 weeks: No - Coronavirus Screening Are you exhibiting any of the following symptoms?: No Close contact with a COVID-19 positive Pt in past 14-21 Days: No - Vaccine Status Have you recieved a Covid-19 vaccination: Yes [employer]: [employer] - Vaccination Dates Date of 2cond Vaccination (if applicable): 2019 - Review of Systems Constitutional: No Symptoms Eyes: No Symptoms Ears, Nose, & Throat: No Symptoms Respiratory: Dyspnea Cardiac: Chest Pain Abdominal/Gastrointestinal: No Symptoms Genitourinary Symptoms: No Symptoms Musculoskeletal: No Symptoms Skin: No Symptoms Neurological: No Symptoms Psychological: No Symptoms Hematologic/Lymphatic: No Symptoms Immunological/Allergic: No Symptoms - Past Medical History Pertinent Past Medical History: Yes Neurological History: No Pertinent History ENT History: No Pertinent History Cardiac History: High Cholesterol, Hypertension, Myocardial Infarction (NH) Respiratory History: No Pertinent History Endocrine Medical History: No Pertinent History Musculoskeletal History: Arthritis GI Medical History: No Pertinent History History: No Pertinent History Psycho-Social History: No Pertinent History Male Reproductive Disorders: No Pertinent History Other Medical History: gout - Past Surgical History Past Surgical History: Yes Cardiac: Cardiac Catheterization, Cardiac Stent Gastrointestinal: Cholecystectomy Genitourinary: No Pertinent History Musculoskeletal: No Pertinent History Male Surgical History: No Pertinent History Other Surgical History: nasal surgery - Social History Smoking Status: Former smoker Exposure to second hand smoke: No Drug Use: none Patient Lives Alone: No - Nursing Vital Signs Nursing Vital Signs: Initial Vital Signs Temperature 98.3 F 08/14/22 20:20 Pulse Rate 84 08/14/22 20:20 Respiratory Rate 18 08/14/22 20:20 Blood Pressure 200/102 08/14/22 20:20 O2 Sat by Pulse Oximetry 97 08/14/22 20:20 Pain Scale Pain Intensity 10 - Physical Exam General Appearance: no apparent distress, alert Eye Exam: PERRL/EOMI Ears, Nose, Throat Exam: normal ENT inspection Neck Exam: normal inspection, non-tender, supple, full range of motion Respiratory Exam: normal breath sounds, lungs clear Cardiovascular Exam: regular rate/rhythm, normal heart sounds Gastrointestinal/Abdomen Exam: soft, normal bowel sounds Back Exam: normal inspection Extremity Exam: normal inspection, normal range of motion Neurologic Exam: alert, oriented x 3, cooperative Skin Exam: normal color SpO2 Interpretation: normal SpO2: 96 O2 Delivery: Room Air - Course EKG Interpreted by Me: RATE (84 paced rhythm), Right [place] Deviation, prolonged QT interval, Q-wave, Non-specific ST Changes Ordered Tests: Active Orders 24 hr Category Date Time Status [employer] STAT Care 08/14/22 20:20 Active EKG-ER Only STAT Care 08/14/22 20:20 Active IV Insertion STAT Care 08/14/22 20:20 Active Oxygen-ED Only Nasal Cannula 2 lpm Care 08/14/22 20:20 Active Pulse Oximetry (ED) STAT Care 08/14/22 20:20 Active CHEST 1 VIEW (PORTABLE) Stat Exams 08/14/22 20:20 Ordered CBC W DIFF Stat Lab 08/14/22 20:26 Received CMP Stat Lab 08/14/22 20:26 Received NT PRO BNPII Stat Lab 08/14/22 20:26 Received TROPONIN Q4H Lab 08/14/22 20:26 Received TROPONIN Q4H Lab 08/15/22 00:30 Ordered TROPONIN Q4H Lab 08/15/22 04:30 Ordered Medication Summary Discontinued Medications Generic Name Dose Route Start Last Admin Trade Name Blayneq PRN Reason Stop Dose Admin Aspirin 324 mg 08/14/22 20:20 08/14/22 20:37 Aspirin 81 Mg Tab.Chew PO 08/14/22 20:21 324 mg STAT ONE Administration Aspirin Confirm 08/14/22 20:34 Aspirin 81 Mg Tab.Chew Administered 08/14/22 20:35 Dose 324 mg .ROUTE .STK-MED ONE Morphine Sulfate 4 mg 08/14/22 20:20 08/14/22 20:36 Morphine Sulfate 4 Mg/Ml Injection IV 08/14/22 20:21 4 mg STAT ONE Administration Morphine Sulfate Confirm 08/14/22 20:34 Morphine Sulfate 4 Mg/Ml Injection Administered 08/14/22 20:35 Dose 4 mg .ROUTE .STK-MED ONE Nitroglycerin 1 gm 08/14/22 20:30 08/14/22 20:36 Nitroglycerin 1 Gm Packet TOP 08/14/22 20:31 1 gm STAT ONE Administration Nitroglycerin Confirm 08/14/22 20:34 Nitroglycerin 1 Gm Packet Administered 08/14/22 20:35 Dose 1 gm .ROUTE .STK-MED ONE Ondansetron HCl 4 mg 08/14/22 20:20 08/14/22 20:37 Ondansetron Hcl 4 Mg/2 Ml Vial IV 08/14/22 20:21 4 mg STAT ONE Administration Ondansetron HCl Confirm 08/14/22 20:33 Ondansetron Hcl 4 Mg/2 Ml Vial Administered 08/14/22 20:34 Dose 4 mg .ROUTE .STK-MED ONE Lab/Rad Data: Laboratory Result Diagrams 08/14/22 20:26 Laboratory Results 08/14/22 Range/Units 20:26 WBC 12.0 H (4.0-10.5) x10^3/uL RBC 5.27 (4.1-5.6) x10^6/uL Hgb 14.9 (12.5-18.0) g/dL Hct 46.2 (42-50) % MCV 87.7 (78-100) fL MCH 28.3 (26-32) pg MCHC 32.3 (32-36) g/dL RDW 13.5 (11.5-14.0) % Plt Count 234 (150-450) x10^3/uL MPV 10.5 (7.5-11.0) fL Gran % 50.8 (36.0-66.0) % Immature Gran % (Auto) 0.3 (0.00-0.4) % Nucleat RBC Rel Count 0.0 (0.00-0.1) % Eos # (Auto) 0.42 (0-0.5) x10^3/uL Immature Gran # (Auto) 0.04 H (0.00-0.03) x10^3u/L Absolute Lymphs (auto) 3.99 (1.0-4.6) x10^3/uL Absolute Monos (auto) 1.34 H (0.0-1.3) x10^3/uL Absolute Nucleated RBC 0.00 (0.00-0.01) x10^3u/L Lymphocytes % 33.3 (24.0-44.0) % Monocytes % 11.2 (0.0-12.0) % Eosinophils % 3.5 (0.00-5.0) % Basophils % 0.9 (0.0-0.4) % Absolute Granulocytes 6.08 (1.4-6.9) x10^3/uL Basophils # 0.11 (0-0.4) x10^3/uL - Progress Progress: re-examined Air Movement: good Progress Note: 08/14/22 20:42 67-year-old with history of CAD with stenting and recent pacemaker placement at [facility] almost a week ago presented with sudden onset chest pain. Patient is diaphoretic on presentation, EKG is paced rhythm with some questionable elevation in the lateral leads, given aspirin Nitropaste and morphine. I have discussed with ER physician Dr. Barron at [facility], reviewed history and EKG, does not have any previous EKG here to compare with, agreed with transfer. Plan discussed with patient/family who understand and agree with it. 08/14/22 20:48 Blood Culture(s) Obtained: No Antibiotics given: No Discussed with DrDenita: Other Counseled pt/family regarding: lab results, diagnosis, need for follow-up, rad results Medical Desision Making - Independent Historian Additional History obtained from: Spouse - Discussion of managment Care discussed with:: on-call "doc" ([facility] ER physician Dr. Barron) Reviewed:: Test results, Need for additional workup Agreed on:: Treatment plan Will see patient: in ED - Diagnostic Testing Radiological Interpretation: Interpreted by me, Reviewed by me - Risk of complications The pt has a high risk of morbidity or mortality based on: Decision regarding hospitilization or escalation of hosp level of care - Departure Departure Disposition: Transfer Clinical Impression: Chest pain Condition: Fair Critical Care Time: Yes Critical Care Time(excluding separately billable procedures): Critical 30-74 mins
[2022-08-14 20:51] LABS: ALBUMIN 4.3 g/dL (3.5-5.0); ALKALINE PHOSPHATASE 53 U/L (38-126); BLOOD UREA NITROGEN 20 mg/dL (9-20); CHLORIDE 100 mmol/L (98-107); Calcium 9.1 mg/dL (8.4-10.2); Carbon Dioxide 34 mmol/L (22-30); Creatinine 1 1.01 mg/dL (0.66-1.25); EST GLOMERULAR FILTRATION RATE > 60.0 ML/MIN; Glucose 102 mg/dL (74-106); Potassium 4.4 mmol/L (3.5-5.1); SGOT/AST 33 U/L (17-59); SGPT/ALT 30 U/L (0-50); SODIUM 144 mmol/L (137-145); Total Protein 8.1 g/dL (6.3-8.2)
[2022-08-14 21:01] LABS: TROPONIN 0.013 ng/mL (0.000-0.034)
[2022-08-14 21:12] VITALS: BP 154/78; PULSE 85; O2SAT 95
--- NOTE | 2022-08-14 22:35 | XRAY ---
Indication: Chest pain. Comparison: June 05, 2019 Portable chest better inflated and clear. Heart not enlarged with new left dual lead pacemaker. Bony thorax intact again with osteopenia and mild degenerative changes. Impression: Nonacute chest with chronic features.
== END 2022-08-14 21:17 | disposition short-term general hospital (02) ==
LOC: ED 20:18
DX: R07.9 Chest pain, unspecified (principal); R06.02 Shortness of breath; E78.5 Hyperlipidemia, unspecified; I10 Essential (primary) hypertension; I25.2 Old myocardial infarction; Z79.899 Other long term (current) drug therapy
CPT/HCPCS: 36000; 36415; 71045; 80053; 83880; 84484; 85025; 93005; 93041; 94760; 96374; 96375; 99285; 99291; J2270; J2405; A9270-GY